=== PATIENT | female | born 1995 | race African-American/Black ===

== ENCOUNTER 2020-06-06 10:41 | Outpatient (REF) | payer OTHER, SELFPAY | END 2020-06-06 10:42 | disposition home or self-care (01) | LOC: HO.LAB 10:41 | PROVIDERS: Visit Provider Internal Medicine | DX: Z20.828 Contact with and (suspected) exposure to other viral communicable diseases (principal) | CPT/HCPCS: C9803; U0003 ==

== ENCOUNTER 2020-06-30 14:49 | Outpatient (REF) | payer OTHER, SELFPAY | END 2020-06-30 14:50 | disposition home or self-care (01) | LOC: HO.LAB 14:49 | PROVIDERS: Visit Provider Internal Medicine | DX: Z20.828 Contact with and (suspected) exposure to other viral communicable diseases (principal) | CPT/HCPCS: C9803; U0003 ==

== ENCOUNTER 2020-08-11 13:44 | Outpatient (REF) | payer OTHER, SELFPAY ==
--- NOTE | 2020-08-11 16:00 | MHC.AU.P13 ---
Hearing Aid Evaluation- Binaural Date of Visit: 08/11/20 Description of Hearing: Right ear- Moderate sloping to profound mixed hearing loss from 250-8000 Hz. Left ear- Mild to moderate sensorineural hearing loss from 250-4000 Hz, rising to normal hearing from 9008-9922 Hz. Current Hearing Instrument Information: Last hearing aids from 2012, has since lost. Additional Information: Ms. Steele reports that she has had hearing loss since childhood and has a history of ear surgeries. She was seen for an audiogram at [facility] on 08/02/2020 and medical clearance for binaural hearing aids was received from Dr. Zaragoza. She notes that she has been having increased difficulty hearing lately, especially at work. She is frequently asking for repetition or asking people to raise their voice so she can hear. Binaural amplification is recommended to facilitate improved communication. Options and technologies were discussed. Hearing Instrument Selection: Right Ear: College [employer] Department Head: [employer] Model: [employer] P70-13T Battery Size: 13 Color: P8-Black Refining Equipment Operator: Size 0 P Type of Mold: c-Shell Left Ear: [employer] Department Head: Phonak Model: [employer] P70-13T Battery Size: 13 Color: P8-Black Refining Equipment Operator: Size 0 M Type of Mold: c-Shell Plan: Plan of Care for Hearing Instrument Fitting: Patient wishes to purchase hearing aids as prescribed Action Taken/Action Needed: Earmold Impressions Taken Hearing Fitting to be scheduled when materials arrive Comments: Hearing aid order placed. Diagnosis Code(s): Primary Diagnosis: H90.3 Bilateral Sensorineural Hearing Loss Signature: Provider: Philip Teague, [facility]
== END 2020-08-11 13:45 | disposition home or self-care (01) ==
LOC: HO.HAP 13:44
PROVIDERS: Visit Provider Otolaryngology
DX: Z46.1 Encounter for fitting and adjustment of hearing aid (principal); H90.3 Sensorineural hearing loss, bilateral
CPT/HCPCS: 92591; V5275

== ENCOUNTER 2020-09-16 15:00 | Outpatient (REF) | payer OTHER, SELFPAY | END 2020-09-16 15:01 | disposition home or self-care (01) | LOC: HO.HAP 15:00 | PROVIDERS: Visit Provider Otolaryngology | DX: Z46.1 Encounter for fitting and adjustment of hearing aid (principal) | CPT/HCPCS: V5011; V5020; V5160; V5261; V5264; V5266 ==

== ENCOUNTER 2020-11-30 13:38 | Outpatient (REF) | payer OTHER, SELFPAY ==
--- NOTE | 2020-11-30 14:34 | MHC.AU.P13 ---
Hearing Instrument Problem Date of Visit: 11/30/20 Right Ear: Oil Well Services Dispatcher: Phonak Model: Audeo P70-13T Serial Number: [id number] Repair Warranty: 11/20/2023 Loss and Damage Warranty: 11/20/2023 Service Plan: 09/16/21 Battery Size: 13 Color: P8-Black Physics Technical Officer: Size 0 P Type of Mold: c-Shell SN: [id number] Warranty: 12/20/2020 Type of Wax Guard: Cerustop Left Ear: Oil [employer] Dispatcher: Phonak Model: Audeo P70-13T Serial Number: [id number] Repair Warranty: 11/20/2023 Loss and Damage Warranty: 11/20/2023 Service Plan: 09/16/21 Battery Size: 13 Color: P8-Black Physics Technical Officer: Size 0 M Type of Mold: c-Shell SN: [id number] (12/20/20) Type of Wax Guard: Cerustop Follow-Up Summary: Right aid dropped off - patient reports it was stepped on - sent to [place] for repair/remake cshell. Recommendations: Recommendations: Patient will be contacted when materials have arrived. Signature: Provider: NATE Chavez-HIS
== END 2020-11-30 13:39 | disposition home or self-care (01) ==
LOC: HO.HAP 13:38
PROVIDERS: Visit Provider Internal Medicine
DX: Z13.89 Encounter for screening for other disorder (principal)

== ENCOUNTER 2020-12-14 13:32 | Outpatient (REF) | payer OTHER, SELFPAY | END 2020-12-14 13:33 | disposition home or self-care (01) | LOC: HO.HAP 13:32 | PROVIDERS: Visit Provider Internal Medicine | DX: H90.3 Sensorineural hearing loss, bilateral (principal); Z46.1 Encounter for fitting and adjustment of hearing aid | CPT/HCPCS: V5266 ==

== ENCOUNTER 2021-02-02 16:00 | Outpatient (REF) | payer OTHER, SELFPAY | END 2021-02-02 16:01 | disposition home or self-care (01) | LOC: HO.HAP 16:00 | PROVIDERS: Visit Provider Internal Medicine | DX: Z46.1 Encounter for fitting and adjustment of hearing aid (principal); H90.5 Unspecified sensorineural hearing loss | CPT/HCPCS: V5266 ==

== ENCOUNTER 2021-03-24 13:07 | Outpatient (REF) | payer OTHER, SELFPAY ==
[2021-03-25 11:01] LABS: BV Int Neg Control Negative (Negative); BV Int Pos Control Positive (Positive)
[2021-03-25 11:20] LABS: CT PCR NOT DETECTED (Not Detect.); NG PCR NOT DETECTED (Not Detect.)
== END 2021-03-24 13:08 | disposition home or self-care (01) ==
LOC: HO.LAB 13:07
PROVIDERS: PCP Internal Medicine; Visit Provider Advanced Practice Midwife
DX: N92.1 Excessive and frequent menstruation with irregular cycle (principal); R10.2 Pelvic and perineal pain; Z97.5 Presence of (intrauterine) contraceptive device
CPT/HCPCS: 81003; 81025; 87480; 87491; 87510; 87591; 87660; 99212

== ENCOUNTER 2021-05-03 16:11 | Outpatient (REF) | payer OTHER, SELFPAY | END 2021-05-03 16:12 | disposition home or self-care (01) | LOC: HO.HAP 16:11 | PROVIDERS: Visit Provider Internal Medicine | DX: Z13.89 Encounter for screening for other disorder (principal) ==

== ENCOUNTER 2021-05-05 13:23 | Outpatient (REF) | payer OTHER, SELFPAY | END 2021-05-05 13:24 | disposition home or self-care (01) | LOC: HO.HAP 13:23 | PROVIDERS: Visit Provider Internal Medicine | DX: Z13.89 Encounter for screening for other disorder (principal) ==

== ENCOUNTER 2021-06-07 11:33 | Outpatient (REF) | payer OTHER, SELFPAY ==
--- NOTE | 2021-06-07 16:46 | MHC.AU.HFU ---
Hearing Instrument Follow-Up- Binaural Date of Visit: 06/07/21 Right Ear: Master Control Technician: Phonak Model: Audeo P70-13T Serial Number: [id number] Repair Warranty: 11/20/2023 Loss and Damage Warranty: 11/20/2023 - USED 06/12/2021 Service Plan: 09/16/21 Battery Size: 13 Color: P8-Black Clerical Transcriber: Size 0 P Type of Mold: c-Shell, SN: [id number], Warranty: 12/20/2020 Type of Wax Guard: Cerustop Dispensed By: [facility] Date of Fittin09/16/20 Left Ear: Master Control Technician: Phonak Model: Audeo P70-13T Serial Number: [id number] Repair Warranty: 11/20/2023 Loss and Damage Warranty: 11/20/2023 Service Plan: 09/16/21 Battery Size: 13 Color: P8-Black Clerical Transcriber: Size 0 M Type of Mold: c-Shell, SN: [id number] (12/20/20) Type of Wax Guard: Cerustop Dispensed By: [facility] Date of Fittin09/16/20 Follow-Up Summary: Patient was seen to pick-up left aid from repair. She reported good sound quality. She also reported that she lost the right hearing aid. Filled out an L&D form and sent to [facility]. Recommendations: Recommendations: Patient will be contacted when materials have arrived. Will bill new cShell to [facility] at pick-up. Primary Diagnosis: H90.3 Bilateral Sensorineural Hearing Loss Signature: Provider: Philip Teague, [facility]
== END 2021-06-07 11:34 | disposition home or self-care (01) ==
LOC: HO.HAP 11:33
PROVIDERS: Visit Provider Internal Medicine
DX: Z13.89 Encounter for screening for other disorder (principal)

== ENCOUNTER 2021-06-09 09:32 | Outpatient (REF) | payer OTHER, SELFPAY ==
[2021-06-10 12:02] LABS: BV Int Neg Control Negative (Negative); BV Int Pos Control Positive (Positive)
== END 2021-06-09 09:33 | disposition home or self-care (01) ==
LOC: HO.LAB 09:32
PROVIDERS: PCP Internal Medicine; Visit Provider Advanced Practice Midwife
DX: Z01.411 Encounter for gynecological examination (general) (routine) with abnormal findings (principal); N89.8 Other specified noninflammatory disorders of vagina; L73.2 Hidradenitis suppurativa
CPT/HCPCS: 87480; 87510; 87660; 88142

== ENCOUNTER 2021-07-11 11:03 | Outpatient (REF) | payer OTHER, SELFPAY | END 2021-07-11 11:04 | disposition home or self-care (01) | LOC: HO.HAP 11:03 | PROVIDERS: Visit Provider Internal Medicine | DX: Z46.1 Encounter for fitting and adjustment of hearing aid (principal); H90.3 Sensorineural hearing loss, bilateral | CPT/HCPCS: V5264 ==

== ENCOUNTER → 2021-09-04 16:08 | Outpatient (BNVA) | payer OTHER, SELFPAY | PROVIDERS: PCP Internal Medicine; Visit Provider Advanced Practice Midwife ==

== ENCOUNTER 2022-03-16 07:56 | Outpatient (REF) | payer OTHER, SELFPAY ==
--- NOTE | 2022-03-16 13:32 | MHC.AU.HFU ---
Hearing Instrument Follow-Up- Binaural Date of Visit: 03/16/22 Right Ear:Feather Cutting Machine Feeder: Phonak Model: Audeo P70-13T Serial Number: [id number] Repair Warranty: 11/20/2023 Loss and Damage Warranty: 11/20/2023 - USED 06/12/2021 Service Plan: 09/16/21 Battery Size: 13 Color: P8-Black Caltrans Equipment Operator: Size 0 P Type of Dome: Type of Mold: c-Shell SN: [id number] 10/24/2021 Type of Wax Guard: Cerustop Dispensed By: [facility] Date of Fittin09/16/20 Left Ear: Feather Cutting Machine Feeder: Phonak Model: Audeo P70-13T Serial Number: [id number] Repair Warranty: 11/20/2023 Loss and Damage Warranty: 11/20/2023 Service Plan: 09/16/21 Battery Size: 13 Color: P8-Black Caltrans Equipment Operator: Size 0 M Type of Mold: c-Shell SN: [id number] (12/20/20) Type of Wax Guard: Cerustop Dispensed By: [facility] Date of Fittin09/16/20 Follow-Up Summary: Patient reports yesterday the right aid stopped working and the left aid is weak. Listening check confirms problem. Placed new receivers on both aids with immediate sound improvement . Placed domes on aids, did not change acoustics in [employer]. Ordering new c-shells for both ears using scans on file. Recommendations: Recommendations: Patient will be contacted when materials have arrived. Services Performed:VASQUEZ Non-Quantity Charges: HACHECKB (MH>1 yr or new to us) Face to face appointment Signature:Provider: Lorie East, [facility]
== END 2022-03-16 07:57 | disposition home or self-care (01) ==
LOC: HO.HAP 07:56
PROVIDERS: Visit Provider Internal Medicine
DX: Z46.1 Encounter for fitting and adjustment of hearing aid (principal); H90.3 Sensorineural hearing loss, bilateral
CPT/HCPCS: 92593

== ENCOUNTER 2022-04-25 13:21 | Outpatient (REF) | payer OTHER, SELFPAY ==
--- NOTE | 2022-04-26 15:20 | MHC.AU.HFU ---
Hearing Instrument Follow-Up- Binaural Date of Visit: 04/25/22 Right Ear: Customizer: Phonak Model: Audeo P70-13T Serial Number: [id number] Repair Warranty: 11/20/2023 Loss and Damage Warranty: 11/20/2023 - USED 06/12/2021 Service Plan: 09/16/21 Battery Size: 13 Color: P8-Black Courtesy Van Driver: Size 0 P Type of Mold: c-Shell SN: [id number] Warranty: Type of Wax Guard: Cerustop Dispensed By: [facility] Date of Fittin09/16/20 Left Ear: Customizer: Phonak Model: Audeo P70-13T Serial Number: [id number] Repair Warranty: 11/20/2023 Loss and Damage Warranty: 11/20/2023 Service Plan: 09/16/21 Battery Size: 13 Color: P8-Black Courtesy Van Driver: Size 0 M Type of Mold: c-Shell SN: [id number] Warranty: Type of Wax Guard: Cerustop Dispensed By: [facility] Date of Fittin09/16/20 Follow-Up Summary: Alyse returned to milk pickup driver her new c-shell ear molds. Ran feedback software development project manager. Molds fit comfortably with no feedback in office. Her hearing aids were thoroughly cleaned and a listening check demonstrated the hearing aids were in good working order. Recommendations: Hearing instrument maintenance in 6 months, or sooner if needed. Please contact our clinic with any questions or concerns. Advised of c-shell warranty and recommended calling as soon as possible if problems with the ear mold fit arise. Diagnosis Code(s): Primary Diagnosis: H90.3 Bilateral Sensorineural Hearing Loss Services Performed: Earmold (Quantity): 2 VASQUEZ Non-Quantity Charges: HACHECKB (MH>1 yr or new to us) Face to face appointment Signature: Provider: BERYL Curry
== END 2022-04-25 13:22 | disposition home or self-care (01) ==
LOC: HO.HAP 13:21
PROVIDERS: Visit Provider Internal Medicine
DX: Z46.1 Encounter for fitting and adjustment of hearing aid (principal); H90.3 Sensorineural hearing loss, bilateral
CPT/HCPCS: 92583; V5264

== ENCOUNTER 2022-11-28 08:28 | Outpatient (REF) | payer OTHER, SELFPAY ==
[2022-11-28 15:21] LABS: CT PCR NOT DETECTED (Not Detect.); NG PCR NOT DETECTED (Not Detect.)
== END 2022-11-28 08:29 | disposition home or self-care (01) ==
LOC: HO.LNP 08:28
PROVIDERS: PCP Internal Medicine; Visit Provider Advanced Practice Midwife
DX: Z20.2 Contact with and (suspected) exposure to infections with a predominantly sexual mode of transmission (principal)
CPT/HCPCS: 0353U

== ENCOUNTER → 2023-01-02 14:00 | Outpatient (BNVA) | payer OTHER, SELFPAY | PROVIDERS: PCP Internal Medicine; Visit Provider Advanced Practice Midwife | DX: T83.32XA Displacement of intrauterine contraceptive device, initial encounter (principal); Z53.8 Procedure and treatment not carried out for other reasons | CPT/HCPCS: 58301 ==

== ENCOUNTER 2023-01-02 14:57 | Outpatient (REF) | payer OTHER, SELFPAY ==
--- NOTE | ~2023-01-02 | US_ITS ---
EXAMINATION: US PELVIS CLINICAL INFORMATION: Displacement of IUD COMPARISON: Previous pelvic ultrasound March 2020 TECHNIQUE: Transabdominal ultrasound. Transvaginal exam not performed. FINDINGS: Exam is slightly limited due to patient body habitus. The uterus is anteverted and retroflexed and measures 10.8 x 4.1 x 4.6 cm in dimension. There is an IUD in the uterus. This appears in correct position. The endometrium does not appear thickened measuring 0.5 cm. The right ovary measures 3.1 x 2 x 2.1 cm. There is a 2.3 x 1.7 x 1.5 cm simple cyst. According to best practice criteria and patient age no imaging follow-up recommended. The left ovary is normal and measures 2.8 x 1.6 x 2.3 cm. There is no fluid in the pelvis. US/US pelvic complete IMPRESSION: Limited exam due to patient body habitus. IUD in the uterus appears in satisfactory position. This could be further evaluated with transvaginal pelvic ultrasound and pelvic x-ray if clinically indicated.
== END 2023-01-02 14:58 | disposition home or self-care (01) ==
LOC: HO.US 14:57
PROVIDERS: Visit Provider Advanced Practice Midwife
DX: T83.32XA Displacement of intrauterine contraceptive device, initial encounter (principal)
CPT/HCPCS: 76856

== ENCOUNTER → 2023-01-08 13:05 | Outpatient (BNVA) | payer OTHER, SELFPAY | PROVIDERS: PCP Internal Medicine; Visit Provider Advanced Practice Midwife ==

== ENCOUNTER 2023-05-27 13:15 | Outpatient (AMB) | payer OTHER, SELFPAY ==
--- OUTSIDE RECORDS SUMMARY | 2023-05-27 13:16 | XMS_ITS | Continuity of Care Document ---
Author Name Unknown Organization [facility] ter Address [address] [place] [address]- Care Team Providers Care Bar Captain Name Role Phone Monica Francis MD Primary Care Physician [phone] Encounter [facility] [place] Date(s): 09/19/19 - 09/19/[address] [address]- [facility] Discharge Disposition: A-D/C Walkout Attending Physician: Not on Staff, Attending MD Admitting Physician: Not on Staff, Admitting MD Referring Physician: Not on Staff, Referring MD Allergies, Adverse Reactions, Alerts Substance Reaction Severity Status penicillin rash trouble breathing Activ e phenobarbital RASH Active Results Orders for Microbiology Reports Name Date Group A Strep Screen and Culture 09/19/19 Microbiology Reports TEST:Group A Strep Screen and Culture STATUS:Unauthenticated BODY SITE: SOURCE:THROAT COLLECTED DATE/TIME:09/19/19 3:53 PM Group A Strep Screen and Culture SPECIMEN DESCRIPTION : THROAT SWAB SPECIAL REQUESTS : NONE DIRECT EXAM : RAPID GROUP A RESULT IS NEGATIVE, REFER TO CULTURE RESULT. REPORT STATUS : PRELIMINARY REPORT Vital Signs Most recent to oldest [Reference Range]: 1 2 Oxygen Saturation [94-100 %] 97 % (09/19/19 3:42 PM) 100 % (09/19/19 3:32 PM) Pulse Rate [55-90 bpm] 106 bpm *H* (09/19/19 3:42 PM) 107 bpm *H* (09/19/19 3:32 PM) Blood Pressure [90-138/55-84 mm Hg] 120/ 66mm Hg (09/19/19 3:42 PM) Respiratory Rate [16-30 br/min] 18 br/mi n (09/19/19 3:42 PM) Temperature [96.8-100.4 DegF] 98.7 DegF (09/19/19 3:42 PM) Mode of Delivery (Oxygen) Room air (09/19/19 3:42 PM) Room air (09/19/19 3:32 PM) Blood pressure sites Arm, left (09/19/19 3:42 PM) Temperature Route Oral (09/19/19 3:42 PM)
--- OUTSIDE RECORDS SUMMARY | 2023-05-27 13:16 | XMS_ITS | Continuity of Care Document ---
Author Name Unknown Organization [facility] Address [address] [place] [address], [address] [place] [address]- Care Team Providers Care Rail Signal Designer Name Role Phone Po Silvestre VALLADARES Primary Care Physician Encounter [facility] [place] Date(s): 08/31/20 - 09/30/20 [facility] [address] [place] [address] Drive, [address] [place], [place] [address] Attending Physician: Admtr, Ar8 Admitting Physician: Admtr, Ar8 Referring Physician: Admtr, Ar8 Allergies, Adverse Reactions, Alerts Substance Reaction Severity Status penicillin rash trouble breathing Activ e phenobarbital RASH Active Medications Zoloft 25 mg oral tablet 1 tablet = 25 mg, By Mouth, Daily, # 30 tablet, 0 Refills, Maintenance, 08/31/20 14:14:00 EST, Tablet, Partial fill upon patient request if the prescription is for a schedule II opioid drug. Start Date: 08/31/20 Status: Ordered ZyrTEC 10 mg oral tablet 1 tablet = 10 mg, By Mouth, Daily, # 30 tablet, 0 Refills, Maintenance, 08/31/20 14:15:00 EST, Tablet, Partial fill upon patient request if the prescription is for a schedule II opioid drug. Start Date: 08/31/20 Status: Ordered
--- OUTSIDE RECORDS SUMMARY | 2023-05-27 13:16 | XMS_ITS | Continuity of Care Document ---
Author Name Unknown Organization [facility] Address [address] [place] [address], [address] [place] [address]- Care Team Providers Care International Relations Teacher Name Role Phone Po Silvestre VALLADARES Primary Care Physician [place] [facility] [place]20 [facility] [address] [place] [address], [address] [place] [address]- Attending Physician: Nick García MD Referring Physician: Nik VALLADARES, Javad [place] Allergies, Adverse Reactions, Alerts Substance Reaction Severity [...] opioid drug. Start Date: 08/31/20 Status: Ordered Vital Signs Most recent to oldest [Reference Range]: 1 Height 155 cm (08/31/20 2:13 PM) Weight 105.3 kg (08/31/20 2:13 PM) Body Mass Index [18.5-24.99] 43.83 *>HHI* (08/31/20 2:13 PM)
[2023-05-27 15:19] VITALS: BP 120/74; PULSE 101; TEMP 36.9; O2SAT 96; BMI 44.0
--- NOTE | 2023-05-27 15:19 | AM.OFFWIN_ITS ---
Intake Vital Signs 05/27/23 15:19 Height 5 ft 1 in Weight 233 lb BMI 44.0 BP 120/74 Blood Pressure Location Lt brachial Position Sitting Pulse 101 H Pulse Source Pulse Oximeter Temp 98.4 F Temp Source Oral Pulse Oximetry (%) 96 Oxygen Delivery Method Room Air Intake Visit Reasons: Rt knee sprain Intake Note: Pt presents to the office today for c/o right knee sprain which started on 05/24/23. Pt states she went to an urgent care on 05/24/23 and the urgent care told her that she should get an MRI. Patient Tobacco Use Status: Never used Tobacco Allergies Penicillins [PENICILLINS] Allergy (Unknown, Verified 05/27/23 15:22) HIVES phenobarbital [PHENOBARBITAL] Allergy (Unknown, Verified 05/27/23 15:22) HIVES HPI Rt knee sprain HPI Details 28-year-old female presents to the office for a sick visit. Patient is complaining of pain in the right knee. Does not recall any fall or injury. She was seen in different walk-in 3 days ago. No x-rays were taken. [facility] Medical History Morbid obesity with BMI of 40.0-44.9, adult Hidradenitis suppurativa Surgical History History of ear surgery History of tonsillectomy and adenoidectomy Family History Father Pacemaker Stroke Asthma Hypertension Mother Hypertension Asthma Chronic mental illness Anxiety and depression Social History Alcohol intake: current Alcohol intake frequency: holidays/special occasions only Patient Tobacco Use Status: Never used Tobacco Current occupational status: employed Current occupation: Mental health counselor Sexual orientation: Straight/Heterosexual Gender identity: Female Physical Exam Vital Signs: Last Vital Signs Temp 98.4 F 05/27/23 15:19 Pulse 101 H 05/27/23 15:19 BP 120/74 05/27/23 15:19 Pulse Ox 96 05/27/23 15:19 Oxygen Delivery Method Room Air 05/27/23 15:19 BMI result Body Mass Index 44.0 Extrem Other: Right knee: No joint line tenderness. Pain on flexion of the knee. Full extension of the knee. Assessment & Plan Assessment & Plan (1) Sprain of right knee: Code(s): S83.91XA - Sprain of unspecified site of right knee, initial encounter Plan: X-ray images were revisualized by me. No fractures seen. knee splint provided. Meloxicam called in. Orders: Orders XR knee RT 3V Today S83.91XA - Sprain of unspecified site of right knee, initial encounter Coding Level of Care Code Est Pt Level 4 (37716) Diagnoses Sprain of right knee S83.91XA
== END 2023-05-27 16:02 | disposition home or self-care (01) ==
PROVIDERS: PCP Internal Medicine; Visit Provider Internal Medicine
DX: S83.91XA Sprain of unspecified site of right knee, initial encounter (principal)
CPT/HCPCS: 99214

== ENCOUNTER 2023-05-27 15:32 | Outpatient (REF) | payer OTHER, SELFPAY ==
--- NOTE | ~2023-05-27 | XR_ITS ---
EXAMINATION: XR KNEE, RIGHT CLINICAL INFORMATION: Knee pain COMPARISON: None available. TECHNIQUE: Four views of the right knee. FINDINGS: No significant joint effusion. Joint spaces are preserved. Tiny posterior patellar and lateral marginal osteophytes. XR/XR knee RT 3V IMPRESSION: Minimal degenerative changes.
== END 2023-05-27 15:33 | disposition home or self-care (01) ==
LOC: HO.HMGCX 15:32
PROVIDERS: PCP Internal Medicine; Visit Provider Internal Medicine
DX: S83.91XA Sprain of unspecified site of right knee, initial encounter (principal); X58.XXXA Exposure to other specified factors, initial encounter; Y93.9 Activity, unspecified; Y92.9 Unspecified place or not applicable; Y99.9 Unspecified external cause status
CPT/HCPCS: 73562

== ENCOUNTER 2023-06-26 09:38 | Outpatient (AMB) | payer OTHER, SELFPAY ==
--- NOTE | 2023-06-26 09:51 | A.OFFVIS_ITS ---
Intake Vital Signs 06/26/23 09:52 Height 5 ft 1 in Weight 236 lb BMI 44.6 BP 114/74 Intake Visit Reasons: Consult on IUD removal Boatswains Mate Required: No Information Interpreted: non-clinical & clinical Blind Lacer: Blind Lacer Present (Isatu) Allergies Penicillins [PENICILLINS] Allergy (Unknown, Verified 06/26/23 09:54) HIVES phenobarbital [PHENOBARBITAL] Allergy (Unknown, Verified 06/26/23 09:54) HIVES Is last menstrual period known: Yes Last menstrual period: 06/23/23 Post menopausal: No Patient : No Do you need a note to return to daycare/school/sports/work: Yes (for surgery on saturday) HPI HPI Comments History of Present Illness Details Presenting referred from Renetta Carrillo CNM regarding IUD removal after a failed attempt to remove. Ultrasound in 01/18 showed IUD in utero. The patient is interested in conception [facility] Medical History Morbid obesity with BMI of 40.0-44.9, adult Hidradenitis suppurativa Surgical History History of ear surgery History of tonsillectomy and adenoidectomy Family History Father Pacemaker Stroke Asthma Hypertension Mother Hypertension Asthma Chronic mental illness Anxiety and depression Social History Alcohol intake: current Alcohol intake frequency: holidays/special occasions only Patient Tobacco Use Status: Never used Tobacco Current occupational status: employed Current occupation: Mental health counselor Sexual orientation: Straight/Heterosexual Gender identity: Female Female Reproductive History Menstrual Age of Menarche: 9 Duration of menses: 3-5 days Date of last menstrual period: 06/23/23 control method: progestin IUCD Total pregnancies: 1 Full term: 1 Number of Living Children: 1 Date of last pap smear: 06/12/21 (negative) History of abnormal pap smear: No Review of Systems Card Reports as per HPI and Reports no additional complaints Resp Reports as per HPI and Reports no additional complaints GI Reports as per HPI and Reports no additional complaints Reports as per HPI Physical Exam Vital Signs: Last Vital Signs BP 114/74 06/26/23 09:52 BMI result Body Mass Index 44.6 Const General: cooperative, healthy appearing and comfortable Chest Chest palpation & inspection: normal inspection of the chest and normal palpation of entire chest wall Breast/axilla inspection: normal inspection of the breasts and normal inspection of the axillae Breast/axilla palpation: normal palpation of the breasts, normal palpation of the axillae and no axillary lymphadenopathy Resp Effort & Inspection: normal respiratory effort Auscultation: clear to auscultation bilaterally Percussion: percussion normal Cardio Palpation: normal PMI Rate: regular rate Rhythm: regular rhythm Heart sounds: no murmurs and no rubs Peripheral pulses: Peripheral pulses 2+ throughout GI Inspection: Yes normal to inspection Palpation (GI): Soft to palpation, nontender, no guarding, not rigid and No hepatosplenomegaly present Percussion: Yes normal to percussion Auscultation: normal bowel sounds Rectal Exam - Female: deferred Results AMB Test Urine AMB Test Urine Negative Last Edit by OFELIA Jenkins on 06/26/23 10:18 Assessment & Plan Assessment & Plan (1) IUD strings lost: Code(s): T83.32XA - Displacement of intrauterine contraceptive device, initial encounter Plan: Attempted IUD removal was unsuccessful. Recommended hysteroscopic IUD removal. Discussed with the patient the procedure , all benefits and risks including but not limited to inability to complete the procedure , bleeding, infection, possible need for blood transfusion with all its risk ( HIV,syphilis, Hepatitis, anaphylaxis shock, others..), injury to bladder, rectum, possible need for laparoscopy/laparotomy or hysterectomy. The patient verbalized understanding and signed the consent. Instructions given the patient to schedule a 2 week postoperative appointment Orders: Orders AMB HCG Urine Test Today Z32.02 - Encounter for test, result negative Coding Level of Care Code Est Pt Level 3 (13084) Diagnoses IUD strings lost T83.32XA
[2023-06-26 09:52] VITALS: BP 114/74; BMI 44.6
== END 2023-06-26 11:33 | disposition home or self-care (01) ==
PROVIDERS: PCP Internal Medicine; Visit Provider Obstetrics & Gynecology
DX: Z32.02 Encounter for pregnancy test, result negative (principal); T83.32XA Displacement of intrauterine contraceptive device, initial encounter
CPT/HCPCS: 99213

== ENCOUNTER → 2023-06-26 09:38 | Outpatient (BNVA) | payer OTHER, SELFPAY | PROVIDERS: PCP Internal Medicine; Visit Provider Obstetrics & Gynecology | DX: T83.32XA Displacement of intrauterine contraceptive device, initial encounter (principal) | CPT/HCPCS: 81025; 99212 ==

== ENCOUNTER 2023-07-05 05:53 | Day surgery (SDC) | payer OTHER, SELFPAY ==
[2023-07-02 15:40] VITALS: BMI 44.6
--- NOTE | 2023-07-03 14:12 | P.CONAN_ITS ---
Documented by User: Rita Fam NP 07/03/23 14:12 HPI - Anesthesia Eval Consult details Narrative: 28yo F for Hysteroscopy,REMOVAL intrauterine contraceptive device, PMFSH Active Problems Active Problems: All Active Problems (Updated 07/02/23 @ 15:40 by Flori Juarez RN) IUD strings lost (Acute) Sprain of right knee (Acute) Hearing deficit (Acute) Atlantoaxial subluxation (Acute) Otitis externa (Acute) Otitis media (Acute) Allergy (Acute) Hidradenitis suppurativa (Acute) Past Medical History Medical History (Updated 07/02/23 @ 15:40 by Flori Juarez RN) Hearing deficit Morbid obesity with BMI of 40.0-44.9, adult Hidradenitis suppurativa Family History Family History Father Pacemaker Stroke Asthma Hypertension Mother Hypertension Asthma Chronic mental illness Anxiety and depression Surgical History Surgical History History of ear surgery History of tonsillectomy and adenoidectomy Social History Social History Alcohol intake: current Alcohol intake frequency: holidays/special occasions only Patient Tobacco Use Status: Never used Tobacco Current occupational status: employed Current occupation: Mental health counselor Sexual orientation: Straight/Heterosexual Gender identity: Female Meds Allergies Allergy/AdvReac Type Severity Reaction Status Date / Time Penicillins [PENICILLINS] Allergy Intermediate HIVES Verified 07/05/23 06:23 phenobarbital [PHENOBARBITAL] Allergy Intermediate HIVES Verified 07/05/23 06:23 Home Medications Medication Instructions Recorded Confirmed Last Taken Type levonorgestrel 21 mcg/24 hours (8 0 device vaginal ONCE 06/07/20 Unknown History yrs) 52 mg intrauterine device diphenhydramine HCl 25 mg capsule 25 mg PO BEDTIME 09/04/21 Unknown History (Benadryl) fexofenadine 180 mg tablet 180 mg PO DAILY 05/27/23 Unknown History (Yelitza Hives) Exam Height,Weight and Vital Signs: Height 5 ft 1 in Weight 107.048 kg Assessment and Plan Assessment Anesthesia Assessment: Chart Reviewed Documented by User: Zaid Rodriguez MD 07/05/23 07:29 [facility] Past Medical History Medical History (Updated 07/02/23 @ 15:40 by Flori Juarez RN) Hearing deficit Morbid obesity with BMI of 40.0-44.9, adult Hidradenitis suppurativa Patient : No Family History Family History Father Pacemaker Stroke Asthma Hypertension Mother Hypertension Asthma Chronic mental illness Anxiety and depression Family history of problems with anesthesia: No Surgical History Surgical History History of ear surgery History of tonsillectomy and adenoidectomy History of Problems with Anesthesia: No Social History Social History Alcohol intake: current Alcohol intake frequency: holidays/special occasions only Patient Tobacco Use Status: Never used Tobacco Current occupational status: employed Current occupation: Mental health counselor Sexual orientation: Straight/Heterosexual Gender identity: Female Meds Allergies Allergy/AdvReac Type Severity Reaction Status Date / Time Penicillins [PENICILLINS] Allergy Intermediate HIVES Verified 07/05/23 06:23 phenobarbital [PHENOBARBITAL] Allergy Intermediate HIVES Verified 07/05/23 06:23 Home Medications Medication Instructions Recorded Confirmed Last Taken Type levonorgestrel 21 mcg/24 hours (8 0 device vaginal ONCE 06/07/20 Unknown History yrs) 52 mg intrauterine device diphenhydramine HCl 25 mg capsule 25 mg PO BEDTIME 09/04/21 Unknown History (Benadryl) fexofenadine 180 mg tablet 180 mg PO DAILY 05/27/23 Unknown History (Yelitza Hives) Exam Airway Mallampati Class: II TM Dist: <=3cm Neck ROM: Full Loose/Missing/Broken Teeth: No Heart: ok Lungs: ok Assessment and Plan Assessment Anesthesia Assessment: Anesthesia Plan Discussed Final Anesthetic Review Family History of Problems with Anesthesia: No History of Problems with Anesthesia: No NPO: Yes ASA Class: III Final Preanesthetic Review: No Changes in Pt Med Stat, Meds/Allgs Chart Reviewed, Consent Obtained/Reviewed and Anes Risks/Benef Reviewed Patient Risk: Intermediate Procedure Risk: Low Anesthetic Plan Anesthetic Plan: GA and Agree w/ Assess. and Plan Disposition: Standard PACU
[2023-07-05 06:12] VITALS: BMI 45.4
[2023-07-05 06:33] VITALS: BP 115/74; PULSE 79; RESP 16; TEMP 36.8; O2SAT 96
[2023-07-05 06:56] LABS: UPreg QC Valid YES
[2023-07-05 06:57] LABS: Urine Pregnancy NEGATIVE (NEGATIVE)
[2023-07-05] MEDS: Lactated Ringers 1,000 ML 100 ML IVCONT (07:06)
--- NOTE | 2023-07-05 07:37 | MHC.SHP ---
Pre-Procedural Eval Section A Date of Service: 07/05/23 The patient is an INPATIENT: No Changes since office visit: No Cold of Flu in the past 2 weeks, No New Medical Problems, No Changes in Medication and No Patient answered all questions The History & Physical has been completed within 30 days and I have reviewed it.: Yes Section B Chief Complaint: Displacement of intrauterine contraceptive device, Allergies: Allergies Allergy/AdvReac Type Severity Reaction Status Date / Time Penicillins [PENICILLINS] Allergy Intermediate HIVES Verified 07/05/23 06:23 phenobarbital [PHENOBARBITAL] Allergy Intermediate HIVES Verified 07/05/23 06:23 Plan Diagnosis/Plan: Unchanged I have reviewed the history and physical and performed a pertinent physical examination on my patient. No changes have occurred unless specified. Time Spent With Patient Time: Total time managing care of this patient today ____ minutes.
--- NOTE | 2023-07-05 08:00 | PM.OP ---
Brief Operative Note Date of Service: 07/05/23 Pre-op diagnosis: IUD complication, lost string Post-op diagnosis: same Procedure: Hysteroscopic IUD removal Surgeon: Vinay Lamar MD Anesthesia: MAC Was an Mortgage Processor used for this Procedure?: No Estimated blood loss (mL): 0 Pathology: other (none) Condition: stable Disposition: PACU
--- NOTE | 2023-07-05 08:01 | W.PM.OPN ---
Operative Note Operative Note Date of Service: 07/05/23 Narrative: Preop Diagnosis: IUD complication, lost string Operation: Diagnostic Hysteroscopic IUD removal Post Op Diagnosis: same. IUD and string in utero QBL: Minimal Anesthesia: MAC Surgeon: Vinay Lamar MD Vinyl Welder And Fabricator: None Complication: None Pathology: None Procedure: The patient was put in the dorsal lithotomy position, scrubbed, and draped in the usual manner. A sterile speculum was inserted in the patient's vagina. The anterior lip of the cervix was grasped with a single tooth tenaculum. The cervix was dilated up to 5 mm, then the scope was inserted in the patient's uterus. Inspection revealed IUD & its string in utero. A hysteroscopic grasper was introduced through the operative channel, the string grasped and IUD pulled out of the uterine cavity with no complications. At the end of the procedure, all instruments were taken out of the patient uterine and vaginal cavity. The single tooth tenaculum was removed and homeostasis was assured using pressure. The patient tolerated the procedure well and was transferred to the PACU in a stable condition.
[2023-07-05 08:10] VITALS: BP 93/52; PULSE 84; RESP 14; TEMP 36.1; O2SAT 94
[2023-07-05 08:15] VITALS: BP 94/58; PULSE 77; RESP 14; O2SAT 95
[2023-07-05 08:20] VITALS: BP 95/58; PULSE 78; RESP 16; O2SAT 96
[2023-07-05 08:25] VITALS: BP 107/61; PULSE 80; RESP 16; O2SAT 96
[2023-07-05 08:40] VITALS: BP 102/61; PULSE 76; RESP 16; TEMP 36.1; O2SAT 98
== END 2023-07-05 09:00 | disposition home or self-care (01) ==
PROVIDERS: PCP Internal Medicine; Visit Provider Obstetrics & Gynecology
PROC: 0UJD8ZZ Inspection of Uterus and Cervix, Via Natural or Artificial Opening Endoscopic (ICD-10-PCS; CPT 58555; principal; 2023-07-05 07:30)
DX: T83.32XA Displacement of intrauterine contraceptive device, initial encounter (principal); Y76.8 Miscellaneous obstetric and gynecological devices associated with adverse incidents, not elsewhere classified; Y92.9 Unspecified place or not applicable; L73.2 Hidradenitis suppurativa; E66.01 Morbid (severe) obesity due to excess calories; Z68.41 Body mass index [BMI] 40.0-44.9, adult; Z88.0 Allergy status to penicillin; Z88.8 Allergy status to other drugs, medicaments and biological substances; Z98.890 Other specified postprocedural states
CPT/HCPCS: 58562; 81025; 88300; 88304; J1885; J2250; J2405; J2704; J3010

== ENCOUNTER → 2023-07-05 05:53 | Outpatient (BNV) | payer OTHER, SELFPAY | PROVIDERS: PCP Internal Medicine; Visit Provider Obstetrics & Gynecology | DX: M47.816 Spondylosis without myelopathy or radiculopathy, lumbar region (principal) | CPT/HCPCS: 58562; 64555 ==

== ENCOUNTER 2023-07-17 13:10 | Outpatient (AMB) | payer OTHER, SELFPAY ==
[2023-07-17 13:15] VITALS: BP 116/70; BMI 44.6
--- NOTE | 2023-07-17 13:15 | A.OFFVIS_ITS ---
Intake Vital Signs 07/17/23 13:15 Height 5 ft 1 in Weight 236 lb BMI 44.6 BP 116/70 Intake Visit Reasons: post op Customer Service Advocate Required: No Information Interpreted: non-clinical & clinical Accompanied by: Self / Same As Patient Allergies Penicillins [PENICILLINS] Allergy (Intermediate, Verified 07/17/23 13:22) HIVES phenobarbital [PHENOBARBITAL] Allergy (Intermediate, Verified 07/17/23 13:22) HIVES Is last menstrual period known: Yes Last menstrual period: 07/14/23 HPI HPI Comments History of Present Illness Details The patient is presenting post hysteroscopic IUD removal no complaints minimal vaginal bleeding no feverishness chills or abdominal pain. The pathology showed the following: ntrauterine device and adherent soft tissue: - T shaped device consistent with IUD. - Small fragments of endometrial stromal with pseudodecidual change; fibrinonecrotic matererial [facility] Medical History Hearing deficit Morbid obesity with BMI of 40.0-44.9, adult Hidradenitis suppurativa Surgical History History of ear surgery History of tonsillectomy and adenoidectomy Family History Father Pacemaker Stroke Asthma Hypertension Mother Hypertension Asthma Chronic mental illness Anxiety and depression Social History Alcohol intake: current Alcohol intake frequency: holidays/special occasions only Patient Tobacco Use Status: Never used Tobacco Current occupational status: employed Current occupation: Mental health counselor Sexual orientation: Straight/Heterosexual Gender identity: Female Female Reproductive History Menstrual Age of Menarche: 9 Date of last menstrual period: 07/14/23 Review of Systems Const All systems reviewed & are unremarkable except as noted in HPI and below Reports as per HPI and Reports no additional complaints GI Reports no additional complaints Reports no additional complaints Physical Exam Vital Signs: Last Vital Signs BP 116/70 07/17/23 13:15 BMI result Body Mass Index 44.6 Assessment & Plan Assessment & Plan (1) IUD strings lost: Comment: Status post hysteroscopic IUD removal Code(s): T83.32XA - Displacement of intrauterine contraceptive device, initial encounter Plan: Discussed with the patient the intraoperative findings, the patient was reassured. All questions answered, the patient verbalized understanding Coding Level of Care Code Est Pt Level 3 (13279) Diagnoses IUD strings lost T83.32XA
== END 2023-07-17 13:38 | disposition home or self-care (01) ==
LOC: HO.HWS 13:11
PROVIDERS: PCP Internal Medicine; Visit Provider Obstetrics & Gynecology
DX: T83.32XA Displacement of intrauterine contraceptive device, initial encounter (principal); Z09 Encounter for follow-up examination after completed treatment for conditions other than malignant neoplasm
CPT/HCPCS: 99213

== ENCOUNTER → 2023-07-17 13:10 | Outpatient (BNVA) | payer OTHER, SELFPAY | PROVIDERS: PCP Internal Medicine; Visit Provider Obstetrics & Gynecology | DX: T83.32XD Displacement of intrauterine contraceptive device, subsequent encounter (principal) | CPT/HCPCS: 99212 ==

== ENCOUNTER 2023-09-17 11:14 | Outpatient (AMB) | payer SELFPAY ==
[2023-09-17 11:25] VITALS: BP 126/72; PULSE 88; O2SAT 99; BMI 45.2
--- NOTE | 2023-09-17 11:25 | A.OFFPC_ITS ---
Vital Signs 09/17/23 11:25 Height 5 ft 1 in Weight 239 lb BMI 45.2 BP 126/72 Blood Pressure Location Lt brachial Position Sitting Pulse 88 Pulse Source Pulse Oximeter Pulse Oximetry (%) 99 Oxygen Delivery Method Room Air Intake Visit Reasons: Physical Intake Note: Patient is here today for a physical. Store Promoter Required: No Allergies Penicillins [PENICILLINS] Allergy (Intermediate, Verified 07/17/23 13:22) HIVES phenobarbital [PHENOBARBITAL] Allergy (Intermediate, Verified 07/17/23 13:22) HIVES Medication List - Last Reconciled 09/17/23 by Silvestre Batista MD diphenhydramine HCl (Benadryl) 25 mg PO BEDTIME fexofenadine (Yelitza Hives) 180 mg PO DAILY PNV,calcium [id number] acid 27 mg iron- 1 mg ( Vitamins Plus Low Iron) 1 tab PO DAILY Tobacco use date assessed: 09/17/23 Dental Screening Dental Screen Date: 09/17/23 Did you have a dental visit in the last 12 months?: No Did you have a dental problem in the last 6 months where you did not have access to dental care?: No HPI Physical HPI Details 28-year-old morbidly obese female coming in for physical exam LMP August 07, 2023, PMPDecember first week - presently 6 weeks [facility] Medical History (Updated 09/17/23 @ 12:31 by Silvestre Batista MD) Obesity Hearing deficit Morbid obesity with BMI of 40.0-44.9, adult Hidradenitis suppurativa Surgical History History of ear surgery History of tonsillectomy and adenoidectomy Family History Father Pacemaker Stroke Asthma Hypertension Mother Hypertension Asthma Chronic mental illness Anxiety and depression Social History Alcohol intake: current Alcohol intake frequency: holidays/special occasions only Patient Tobacco Use Status: Never used Tobacco Current occupational status: employed Current occupation: Mental health counselor Sexual orientation: Straight/Heterosexual Gender identity: Female Cognitive needs: No Hearing needs: No Vision needs: No Female Reproductive History Menstrual Age of Menarche: 9 Questionnaire PHQ-9 Over the last 2 weeks, how often have you been bothered by any of the following problems? 1. Little interest or pleasure in doing things: several days 2. Feeling down, depressed, or hopeless: several days 3. Trouble falling or staying asleep, or sleeping too much: several days 4. Feeling tired or having little energy: several days 5. Poor appetite or overeating: several days 6. Feeling bad about yourself - or that you are a failure or have let yourself or your family down: several days 7. Trouble concentrating on things, such as reading the newspaper or watching television: not at all 8. Moving or speaking so slowly that other people could have noticed. Or the opposite - being so fidgety or restless that you have been moving around a lot more than usual: several days 9. Thoughts that you would be better off or of hurting yourself in some way: not at all Total score: 7 Depression Screening Interpretation: Positive Depression Screening Done: Yes Source: Developed by Drs. Nick Gautam, Tiny Espana, Ayaan Aaron and colleagues, with an educational juan from [employer]. Thrive Questionnaire Date Thrive assessed: 09/17/23 I am a: Patient What is your living situation today?: I have a steady place to live Within the past 12 months, did the food you bought not last and you didn't have the money to get more?: Never true Within the past 12 months, did you worry whether your food would run out before you got money to buy more?: Never true Do you have trouble paying for medicines?: No Do you have trouble getting transportation to medical appointments?: No Do you have trouble paying your heating and electricity bill?: No Do you have trouble taking care of your child, family member or friend?: No Do you have trouble with day-to-day activities such as bathing, preparing meals, shopping, managing finances, etc.?: No Are you currently unemployed and looking for a job?: No Are you interested in more education?: No Please select the resources that you would like help with: None THRIVE Score: 0 AUDIT C Alcohol Use Questionnaire (AUDIT-C) 1. How often do you have a drink containing alcohol?: Never 2. How many drinks containing alcohol do you have on a typical day when you are drinking?: 1 or 2 3. How often do you have six or more drinks on one occasion?: Never Total Score: 0 ARABELLA-7 AMB Questionnaire ARABELLA-7 Date ARABELLA - 7 assessed: 09/17/23 Feeling nervous, anxious, or on edge: 1 = Several days Not being able to stop or control worryin = Several days Worrying too much about different things: 1 = Several days Trouble relaxin = Several days Being so restless that it is hard to sit still: 1 = Several days Becoming easily annoyed or irritable: 1 = Several days Feeling afraid as if something awful might happen: 0 = Not at all Total ARABELLA-7 score (0-4 normal; 5-9 mild; 10-14 moderate; 15-21 severe): 6 Source: Developed by Drs. Nick Gautam, Tiny Espana, Ayaan Aaron and colleagues, with an educational juan from [employer]. Review of Systems Const Denies poor appetite and Denies weakness Eyes Denies no additional complaints ENT Reports Normal hearing present, Denies dizziness, Denies nasal congestion, Denies tinnitus and Denies sore throat Card Denies chest pain, Denies syncope, Denies rapid heart rate and Denies dyspnea Resp Denies cough and Denies dyspnea GI Denies change in stool character, Reports constipation, Denies diarrhea, Denies nausea and Denies vomiting Denies urinary frequency, Denies difficulty voiding and Denies dysuria Neuro Reports Normal hearing present, Denies confusion, Denies dizziness, Denies syncope and Denies weakness Psych Denies confusion Physical exam (Primary Care) Vital Signs: Last Vital Signs Pulse 88 09/17/23 11:25 BP 126/72 09/17/23 11:25 Pulse Ox 99 09/17/23 11:25 Oxygen Delivery Method Room Air 09/17/23 11:25 BMI result Body Mass Index 45.2 Tobacco/Smoking Status: Tobacco use Status Tobacco use date assessed 09/17/23 09/17/23 11:26 Patient Tobacco Use Status Never used Tobacco 09/17/23 11:26 PHQ-9: PHQ-9 Score PHQ-9: Total score 7 09/17/23 11:44 Depression Screening Interpretation: Positive Thrive Assessment: Date of Thrive Assessment Date Thrive assessed 09/17/23 09/17/23 11:26 Const General: No confusion Orientation/consciousness: No confusion HENMT Other: Left ear TM intact, right ear can not see the TM, yellowish discharge noted(pus) Head: Yes normocephalic Ears: external ears normal Face and sinus: Yes normal facial exam Mouth: moist mucous membranes Throat: Yes tonsils normal Eyes Conjunctivae: conjunctivae normal Pupils: Equal, round and reactive pupils present and Pupil accommodation reflex normal Direct Ophthalmoscopy: normal light reflex Neck Neck: No lymphadenopathy Thyroid: Thyroid normal Chest Chest palpation & inspection: normal inspection of the chest Resp Effort & Inspection: normal respiratory effort and no audible wheezes Auscultation: clear to auscultation bilaterally, no crackles, no wheezes and jackie ng sounds not diminished Cardio Rate: regular rate Rhythm: regular rhythm Peripheral pulses: radial pulses present and dorsalis pedis present GI Other: Abdomen is enlarged to 6 weeks Palpation (GI): no masses Auscultation: normal bowel sounds and normoactive bowel sounds Rectal Exam - Female: deferred Skin General skin exam: no rashes or lesions noted Rashes: no rashes Neuro General: No confusion Cranial nerves: Yes Equal, round and reactive pupils present and Yes Normal hearing present Cognition (Neuro): normal cognition Gait exam (Neuro): Normal gait present Motor exam (neuro): 5/5 motor strength present throughout Deep tendon reflexes (DTR's): Right brachioradialis reflex intensity grade: 2+, Left brachioradialis reflex intensity grade: 2+, Right patellar reflex intensity grade: 2+ and Left patellar reflex intensity grade: 2+ Extrem General: No edema Assessment and Plan Assessment & Plan (1) Annual physical exam: Code(s): Z00.00 - Encounter for general adult medical examination without abnormal findings (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 García Code(s): S13.120A - Subluxation of C1/C2 cervical vertebrae, initial encounter Plan: Will and continuing to monitor. Presently stable (3) with 6 completed weeks gestation: Code(s): Z3A.01 - Less than 8 weeks gestation of Plan: Patient will be seeing OB Gynecology in September. (4) Hearing deficit: Code(s): H91.90 - Unspecified hearing loss, unspecified ear Plan: Continuing to use hearing aids. Can not refer to hearing test due to the right ear infection right now (5) GERD (gastroesophageal reflux disease): Code(s): K21.9 - Gastro-esophageal reflux disease without esophagitis Plan: Avoid the foods that causes that usually spicy foods, tomato products, juices, coffee, soda and foods that your sensitive to. After eating do not lie down, allow 3-4 hours before in lie down. And keep the head of bed above 30 degrees to avoid the acid from going up. (6) Otitis media of right ear: Code(s): H66.91 - Otitis media, unspecified, right ear Plan: Penicillin allergy, azithromycin sent in (7) Reactive airway disease: Code(s): J45.909 - Unspecified asthma, uncomplicated Plan: Albuterol inhaler sent in and taught the patient to use it. Medications: New azithromycin (Zithromax) For 250 mg dose pack: take 500 mg today (day 1), then 250 mg for 4 days (days 2-5) PO 6 tabs 0RF H66.91 - Otitis media, unspecified, right ear albuterol sulfate 90 mcg/actuation (Ventolin HFA) 2 puffs inhalation Q6H PRN 8.5 grams 0RF shortness of breath or wheezing T78.40XA - Allergy, unspecified, initial encounter Coding Level of Care Code Est Pt Prev Care 18-39y(52410) Diagnoses Annual physical exam Z00.00 Atlantoaxial subluxation S13.120A with 6 completed weeks gestation Z3A.01 Hearing deficit H91.90 GERD (gastroesophageal reflux disease) K21.9 Otitis media of right ear H66.91 Reactive airway disease J45.909
== END 2023-09-17 12:32 | disposition home or self-care (01) ==
PROVIDERS: PCP Internal Medicine; Visit Provider Internal Medicine
DX: Z00.00 Encounter for general adult medical examination without abnormal findings (principal); S13.120A Subluxation of C1/C2 cervical vertebrae, initial encounter; Z3A.01 Less than 8 weeks gestation of pregnancy; H91.90 Unspecified hearing loss, unspecified ear; K21.9 Gastro-esophageal reflux disease without esophagitis; H66.91 Otitis media, unspecified, right ear; J45.909 Unspecified asthma, uncomplicated
CPT/HCPCS: 99395

== ENCOUNTER 2024-02-19 12:59 | Outpatient (AMB) | payer OTHER, SELFPAY ==
[2024-02-19 13:19] VITALS: BP 122/76; PULSE 118; TEMP 36.2; O2SAT 98; BMI 47.0
--- NOTE | 2024-02-19 13:19 | MHC.OFFWIV ---
Intake Vital Signs 02/19/24 13:19 Height 5 ft 1 in Weight 249 lb BMI 47.0 BP 122/76 Blood Pressure Location Lt brachial Position Sitting Pulse 118 H Pulse Source Pulse Oximeter Temp 97.2 F Temp Source Temporal Artery Scan Pulse Oximetry (%) 98 Oxygen Delivery Method Room Air Intake Visit Reasons: EP lft eye stye Intake Note: Alyse is a 28 year old female who presents to the office today for a left eye stye that started Saturday night. Pt states she has been using hot compresses to help with swelling but she states this morning it was more swollen. Pt also states she is 28 weeks . Patient Tobacco Use Status: Never used Tobacco Allergies Penicillins [PENICILLINS] Allergy (Intermediate, Verified 02/19/24 13:21) HIVES phenobarbital [PHENOBARBITAL] Allergy (Intermediate, Verified 02/19/24 13:21) HIVES HPI HPI Comments History of Present Illness Details Patient is a 28-year-old female who is 28 weeks complaining of right eye stye x 3 days. She said she has been using hot compresses constantly but it is actually getting worse. She states it is now painful. She denies any changes in her vision. [facility] Medical History (Updated 02/19/24 @ 13:39 by Anne Castillo PA-C) Obesity Hearing deficit Morbid obesity with BMI of 40.0-44.9, adult Hidradenitis suppurativa Surgical History History of ear surgery History of tonsillectomy and adenoidectomy Family History Father Pacemaker Stroke Asthma Hypertension Mother Hypertension Asthma Chronic mental illness Anxiety and depression Social History Alcohol intake: current Alcohol intake frequency: holidays/special occasions only Patient Tobacco Use Status: Never used Tobacco Current occupational status: employed Current occupation: Mental health counselor Sexual orientation: Straight/Heterosexual Gender identity: Female Cognitive needs: No Hearing needs: No Vision needs: No Female Reproductive History Menstrual Age of Menarche: 9 Review of Systems Const All systems reviewed & are unremarkable except as noted in HPI and below Physical Exam Vital Signs: Last Vital Signs Temp 97.2 F 02/19/24 13:19 Pulse 118 H 02/19/24 13:19 BP 122/76 02/19/24 13:19 Pulse Ox 98 02/19/24 13:19 Oxygen Delivery Method Room Air 02/19/24 13:19 BMI result Body Mass Index 47.0 Const General: cooperative, healthy appearing, comfortable and no acute distress Orientation/consciousness: patient oriented x3 HEENT Head: Yes normal to inspection General nose exam: Normal external nose present Face and sinus: Yes normal facial exam Eyes Eyelids: Yes eyelid abnormality (Left eye, upper eyelid, 0.25 cm erythematous lump in the medial corner) Conjunctivae: conjunctivae normal Sclerae: sclerae normal Pupils: Equal, round and reactive pupils present EOM: EOMs intact bilaterally Resp Effort & Inspection: normal respiratory effort and able to speak in complete sentences Neuro General: patient oriented x3 Cranial nerves: Yes Equal, round and reactive pupils present Assessment & Plan Assessment & Plan (1) Hordeolum externum left upper eyelid: Code(s): H00.014 - Hordeolum externum left upper eyelid Plan: Sent prescription to pharmacy for eye ointment, educated patient on the use of ointment. Advised if she has any changes in her vision, she should call her PCP or go to the emergency department. Plan See above Medications: New erythromycin 0.5 inches ophthalmic (eye) QID 3.5 grams 0RF Coding Level of Care Code Est Pt Level 3 (44660) Diagnoses Hordeolum externum left upper eyelid H00.014
== END 2024-02-19 13:48 | disposition home or self-care (01) ==
PROVIDERS: PCP Internal Medicine; Visit Provider Physician Assistant
DX: H00.014 Hordeolum externum left upper eyelid (principal)
CPT/HCPCS: 99213

== ENCOUNTER 2024-02-28 12:28 | Outpatient (AMB) | payer OTHER, SELFPAY ==
--- NOTE | 2024-02-28 12:35 | AM.OFFWIN_ITS ---
Intake Vital Signs 02/28/24 12:36 Height 5 ft 1 in Weight 244 lb BMI 46.1 BP 110/66 Blood Pressure Location Rt brachial Position Sitting Pulse 102 H Pulse Source Pulse Oximeter Temp 97.1 F Temp Source Oral Pulse Oximetry (%) 98 Oxygen Delivery Method Room Air Intake Visit Reasons: rt knee can not straighten leg Intake Note: pt c/o RT knee pain. Started Saturday morning Patient Tobacco Use Status: Never used Tobacco Allergies Penicillins [PENICILLINS] Allergy (Intermediate, Verified 02/28/24 12:36) HIVES phenobarbital [PHENOBARBITAL] Allergy (Intermediate, Verified 02/28/24 12:36) HIVES Do you need a note to return to daycare/school/sports/work: No HPI HPI Comments History of Present Illness Details 28 y/o female patient who presents to [facility] walk in clinic with c/o right knee pain for few days now. Reports h/o Arthritis on her knees and used to take NSAIDs with good relief, but now cannot take NSAIDs due to being . Pt is 28 weeks . Denies trauma or injury today. Reports inability to bear weight on the leg, pain worse with walking. [facility] History (Updated 02/19/24 @ 13:39 by Anne Castillo PA-C) Obesity Hearing deficit Morbid obesity with BMI of 40.0-44.9, adult Hidradenitis suppurativa Surgical History History of ear surgery History of tonsillectomy and adenoidectomy Family History Father Pacemaker Stroke Asthma Hypertension Mother Hypertension Asthma Chronic mental illness Anxiety and depression Social History Alcohol intake: current Alcohol intake frequency: holidays/special occasions only Patient Tobacco Use Status: Never used Tobacco Current occupational status: employed Current occupation: Mental health counselor Sexual orientation: Straight/Heterosexual Gender identity: Female Cognitive needs: No Hearing needs: No Vision needs: No Female Reproductive History Menstrual Age of Menarche: 9 Review of Systems Const All systems reviewed & are unremarkable except as noted in HPI and below Physical Exam Vital Signs: Last Vital Signs Temp 97.1 F 02/28/24 12:36 Pulse 102 H 02/28/24 12:36 BP 110/66 02/28/24 12:36 Pulse Ox 98 02/28/24 12:36 Oxygen Delivery Method Room Air 02/28/24 12:36 BMI result Body Mass Index 46.1 Const Orientation/consciousness: patient oriented x3 Neuro Other: Walks with a limp due to pain General: patient oriented x3 and moves all extremities Extrem General: Yes normal to inspection and Yes capillary refill normal Right lower extremity: knee (Limited ROM due to pain.) Details: normal to inspection and tenderness; no swelling, no crepitus, no deformity and no unusual warmth Left lower extremity: normal to inspection, full ROM and knee Details: normal to inspection and normal ROM; no tenderness, no swelling and no crepitus Psych Speech and movement: Normal speech and movement present Assessment & Plan Assessment & Plan (1) Osteoarthritis of right knee: Code(s): M17.11 - Unilateral primary osteoarthritis, right knee Qualifiers: Osteoarthritis type: unspecified Qualified Code(s): M17.11 - Unilateral primary osteoarthritis, right knee Plan: Acetaminophen for pain relief Deferred ray due to at this time. Provided Knee Brace IceHot Rest joint. Coding Level of Care Code Est Pt Level 3 (03787) Diagnoses Osteoarthritis of right knee, unspecified osteoarthritis type M17.11 Osteoarthritis type: unspecified Time Spent (min) 15
[2024-02-28 12:36] VITALS: BP 110/66; PULSE 102; TEMP 36.2; O2SAT 98; BMI 46.1
== END 2024-02-28 13:09 | disposition home or self-care (01) ==
PROVIDERS: PCP Internal Medicine; Visit Provider Nurse Practitioner Family
DX: M17.11 Unilateral primary osteoarthritis, right knee (principal)
CPT/HCPCS: 99213

== ENCOUNTER 2024-07-06 08:40 | Outpatient (REF) | payer OTHER, SELFPAY | END 2024-07-06 08:41 | disposition home or self-care (01) | LOC: HO.SH 08:40 | PROVIDERS: Visit Provider Internal Medicine | DX: Z01.118 Encounter for examination of ears and hearing with other abnormal findings (principal); H90.A31 Mixed conductive and sensorineural hearing loss, unilateral, right ear with restricted hearing on the contralateral side; H90.A22 Sensorineural hearing loss, unilateral, left ear, with restricted hearing on the contralateral side | CPT/HCPCS: 92557; 92567 ==

== ENCOUNTER 2024-07-09 14:03 | Outpatient (AMB) | payer OTHER, SELFPAY ==
[2024-07-09 14:13] VITALS: BP 118/76; BMI 44.6
--- NOTE | 2024-07-09 14:13 | A.OFFVIS_ITS ---
Vital Signs 07/09/24 14:13 Height 5 ft 1 in Weight 236 lb BMI 44.6 BP 118/76 Intake Visit Reasons: depo Photographic Processor Required: No Information Interpreted: non-clinical & clinical Accompanied by: Self / Same As Patient Allergies Penicillins [PENICILLINS] Allergy (Intermediate, Verified 07/09/24 14:19) HIVES phenobarbital [PHENOBARBITAL] Allergy (Intermediate, Verified 07/09/24 14:19) HIVES Is last menstrual period known: No (depo) HPI Comments Details: Presenting for Depo-Provera shot. Last shot was on 04/30 day 1. The patient is doing well with no complaint, minimal vaginal bleeding, no side effects, no weight gain, mood changes or hair loss [facility] Medical History Obesity Hearing deficit Morbid obesity with BMI of 40.0-44.9, adult Hidradenitis suppurativa Surgical History History of ear surgery History of tonsillectomy and adenoidectomy Family History Father Pacemaker Stroke Asthma Hypertension Mother Hypertension Asthma Chronic mental illness Anxiety and depression Social History Alcohol intake: current Alcohol intake frequency: holidays/special occasions only Patient Tobacco Use Status: Never used Tobacco Current occupational status: employed Current occupation: Mental health counselor Sexual orientation: Straight/Heterosexual Gender identity: Female Cognitive needs: No Hearing needs: No Vision needs: No Female Reproductive History Menstrual Age of Menarche: 9 control method: progesterone injection Review of Systems Const All systems reviewed & are unremarkable except as noted in HPI and below Reports as per HPI and Reports no additional complaints GI Reports no additional complaints Reports no additional complaints Physical Exam Vital Signs: Last Vital Signs BP 118/76 07/09/24 14:13 BMI result Body Mass Index 44.6 Assessment & Plan Assessment & Plan (1) Contraceptive management: Code(s): Z30.9 - Encounter for contraceptive management, unspecified Category: Medical Plan: Explained to the patient it has been 70 days from the last shot, the patient is not due for the next shot. Will schedule nurse visit for next Depo-Provera on 07/20/24. Discussed with the patient the potential side effects of Depo- Provera. Instructions given the patient to call in case of mood changes, vaginal bleeding, hair loss or weight gain. All questions answered, the patient verbalized understanding and agreed with the plan. Coding Level of Care Code Est Pt Level 3 (17465) Diagnoses Contraceptive management Z30.9
== END 2024-07-09 14:32 | disposition home or self-care (01) ==
LOC: HO.HWS 14:03
PROVIDERS: PCP Internal Medicine; Visit Provider Obstetrics & Gynecology
DX: Z30.9 Encounter for contraceptive management, unspecified (principal)
CPT/HCPCS: 99213

== ENCOUNTER → 2024-07-09 14:03 | Outpatient (BNVA) | payer OTHER, SELFPAY | PROVIDERS: PCP Internal Medicine; Visit Provider Obstetrics & Gynecology | DX: Z30.9 Encounter for contraceptive management, unspecified (principal) | CPT/HCPCS: 99212 ==

== ENCOUNTER 2024-07-20 11:00 | Outpatient (AMB) | payer OTHER, SELFPAY ==
[2024-07-20 11:11] VITALS: BMI 45.0
--- NOTE | 2024-07-20 11:11 | AM.OFFVISNUR ---
Vital Signs 07/20/24 11:11 Height 5 ft 1 in Weight 238 lb BMI 45.0 Intake Visit Reasons: depo shot Allergies Penicillins [PENICILLINS] Allergy (Intermediate, Verified 07/09/24 14:19) HIVES phenobarbital [PHENOBARBITAL] Allergy (Intermediate, Verified 07/09/24 14:19) HIVES Nursing Note Alyse is here today for her 2nd Depo-Provera inj. 1st being PP 2 mos ago at [facility] [place]. Pt started her menses today. Urine HCG is neg, Inj given , no complaints offered. Follow up in 12 weeks for next inj. Office Procedures Depo Questionnaire If YES to any of the following questions, please consult a provider. Date of last injection: 04/30/24 Date of last menstrual period: 07/20/24 Menstrual pattern since last injection has been: Normal test in office results: Negative Irregular bleeding?: No Breast lumps or other breast changes?: No Changes in weight or appetite?: No Depression or changes in mood?: No Abnormal hair growth or loss?: No Skin problems (rash, acne, discoloration)?: No Pain at the injection site?: No Headaches?: No Nervousness?: No Abdominal pain or cramping?: No Dizziness or nausea?: No Fatigue or weakness?: No Decrease in sexual drive?: No Chest pain or shortness of breath?: No Swelling in arms or legs?: No Form completed by?: Diana Eduardo LPN Office Meds Depo-Provera 150 mg/mL intramuscular syringe Performing Provider: Vinay Lamar MD Performing Location: [facility] Administered by: Jalyn Eduardo LPN on 07/20/24 11:12 Dose Route Admin Location Dispensed Lot Number Expiration Date [facility] Casting Inspector 150 mg IM Lt. deltoid 1 mL [id number] 03/28/26 [address]-36 Eugia Results AMB Test Urine AMB Test Urine Negative Last Edit by Jalyn Eduardo LPN on 07/20/24 11:18 Assessment & Plan Assessment & Plan Orders: Orders AMB Medroxyprogesterone Injection Patient Supplied Today Z30.9 - Encounter for contraceptive management, unspecified Medications: New Depo-Provera (medroxyprogesterone) 150 mg IM ONCE 1 mL 0RF NS Z30.9 - Encounter for contraceptive management, unspecified
== END 2024-07-20 13:23 | disposition home or self-care (01) ==
LOC: HO.HWS 11:00
PROVIDERS: PCP Internal Medicine; Visit Provider Advanced Practice Midwife
DX: Z30.9 Encounter for contraceptive management, unspecified (principal)

== ENCOUNTER → 2024-07-20 11:00 | Outpatient (BNVA) | payer OTHER, SELFPAY | PROVIDERS: PCP Internal Medicine; Visit Provider Advanced Practice Midwife | DX: Z30.9 Encounter for contraceptive management, unspecified (principal) | CPT/HCPCS: 96372; 99211; J1050 ==

== ENCOUNTER 2024-09-18 11:24 | Outpatient (AMB) | payer OTHER, SELFPAY ==
[2024-09-18 11:46] VITALS: BP 110/78; PULSE 90; O2SAT 98; BMI 45.7
--- NOTE | 2024-09-18 11:46 | MHC.PC.OV ---
Vital Signs 09/18/24 11:46 Height 5 ft 1 in Weight 242 lb BMI 45.7 BP 110/78 Blood Pressure Location Lt brachial Position Sitting Pulse 90 Pulse Source Pulse Oximeter Pulse Oximetry (%) 98 Oxygen Delivery Method Room Air Intake Visit Reasons: pe Allergies Penicillins [PENICILLINS] Allergy (Intermediate, Verified 09/18/24 11:47) HIVES phenobarbital [PHENOBARBITAL] Allergy (Intermediate, Verified 09/18/24 11:47) HIVES Medication List - Last Reconciled 09/18/24 by Silvestre Batista MD acetaminophen 1,000 mg (2 x 500 mg) PO Q6H PRN blood sugar diagnostic (FreeStyle Lite Strips) As directed blood-glucose meter (FreeStyle Lite Meter kit) As directed fexofenadine (Yelitza Hives) 180 mg PO DAILY fluticasone propionate 50 mcg/actuation 2 sprays intranasal DAILY lancets (FreeStyle Lancets) As directed pen needle, diabetic (BD Ultra-Fine Mini Pen Needle) As directed Tobacco use date assessed: 09/18/24 Dental Screening Dental Screen Date: 09/18/24 Did you have a dental visit in the last 12 months?: Yes Did you have a dental problem in the last 6 months where you did not have access to dental care?: No Was dental information given to patient?: Patient has dentist HPI pe HPI Details 04/29/2024 of baby boy The patient is a 29-year-old female presenting for a physical examination. She has a history of morbid obesity and gastroesophageal reflux disease (GERD) and reports some issues related to her weight have impacted her daily life. The patient was last seen in August 2023 when she was . Her past medical history includes knee osteoarthritis, for which she has been diagnosed in February, and she has previously visited in January for further assessment. The patient mentioned knee pain without specific resolution. Despite the presence of GERD, she denies any ongoing pain or discomfort such as dysphagia or esophagitis; however, frequent monitoring for symptoms is noted due to her condition. History of is vital as she had been during her last visit earlier this year. Also of note, her COVID-19 immunization status with three doses was reviewed, although concerns regarding the flu vaccination were briefly addressed. A referral to therapy for challenges and job-seeking stress was mentioned as desired. - Reviewed and confirmed COVID-19 vaccination status with three completed doses. - Need for updated blood work noted, as the last tests were from 2019. - Discussed vaccination status for other immunizations and emphasized the importance of staying up to date. - Mentioned a potential requirement for referral for therapy related to issues and employment stress. - Currently seeking employment and reports challenges related to managing a new baby. - Expressed stress related to balancing responsibilities of motherhood and job hunting. - - Musculoskeletal: Reports knee pain. - No mention of symptoms in other systems during the conversation. [facility] Medical History Obesity Hearing deficit Morbid obesity with BMI of 40.0-44.9, adult Hidradenitis suppurativa Surgical History History of ear surgery History of tonsillectomy and adenoidectomy Family History (Updated 09/18/24 @ 12:01 by Silvestre Batista MD) Father Pacemaker Stroke Asthma Hypertension Mother Hypertension Asthma Chronic mental illness Anxiety and depression Paternal Aunt Pancreatic cancer Social History (Updated 09/18/24 @ 12:02 by Silvestre Batista MD) Housing: House Alcohol intake: current Alcohol intake frequency: holidays/special occasions only Comment: once a month 1-2 drinks Patient Tobacco Use Status: Never used Tobacco Tobacco use type: Cigarette Years Smoked: edible e-Cigarette/Vaping Use: Never Used Second Hand Smoke Exposure: No Current occupational status: employed Current occupation: Mental health counselor Sexual orientation: Straight/Heterosexual Gender identity: Female Cognitive needs: No Hearing needs: No Vision needs: No Female Reproductive History Menstrual Age of Menarche: 9 Questionnaire PHQ-9 Over the last 2 weeks, how often have you been bothered by any of the following problems? 1. Little interest or pleasure in doing things: several days 2. Feeling down, depressed, or hopeless: several days 3. Trouble falling or staying asleep, or sleeping too much: not at all 4. Feeling tired or having little energy: several days 5. Poor appetite or overeating: not at all 6. Feeling bad about yourself - or that you are a failure or have let yourself or your family down: several days 7. Trouble concentrating on things, such as reading the newspaper or watching television: several days 8. Moving or speaking so slowly that other people could have noticed. Or the opposite - being so fidgety or restless that you have been moving around a lot more than usual: not at all 9. Thoughts that you would be better off or of hurting yourself in some way: not at all Total score: 5 Depression Screening Interpretation: Positive Depression Screening Done: Yes 61064 - PHQ-9 Billing: Yes Source: Developed by Drs. Nick Gautam, Tiny Espana, Ayaan Aaron and colleagues, with an educational juan from [employer]. Thrive Questionnaire Date Thrive assessed: 09/16/24 I am a: Patient What is your living situation today?: I have a steady place to live Within the past 12 months, did the food you bought not last and you didn't have the money to get more?: Never true Within the past 12 months, did you worry whether your food would run out before you got money to buy more?: Never true Do you have trouble paying for medicines?: Yes Do you have trouble getting transportation to medical appointments?: No Do you have trouble paying your heating and electricity bill?: No Do you have trouble taking care of your child, family member or friend?: No Do you have trouble with day-to-day activities such as bathing, preparing meals, shopping, managing finances, etc.?: No Are you currently unemployed and looking for a job?: Yes Are you interested in more education?: Yes Please select the resources that you would like help with: Childcare and Job search/training Currently or been in a relationship where the following occur: No concerns reported THRIVE Score: 0 AUDIT C Alcohol Use Questionnaire (AUDIT-C) 1. How often do you have a drink containing alcohol?: Monthly or less 2. How many drinks containing alcohol do you have on a typical day when you are drinking?: 1 or 2 3. How often do you have six or more drinks on one occasion?: Never Total Score: 1 ARABELLA-7 AMB Questionnaire ARABELLA-7 Date ARABELLA - 7 assessed: 09/18/24 Feeling nervous, anxious, or on edge: 3 = Nearly every day Not being able to stop or control worryin = Nearly every day Worrying too much about different things: 3 = Nearly every day Trouble relaxin = More than half the days Being so restless that it is hard to sit still: 0 = Not at all Becoming easily annoyed or irritable: 3 = Nearly every day Feeling afraid as if something awful might happen: 0 = Not at all Total ARABELLA-7 score (0-4 normal; 5-9 mild; 10-14 moderate; 15-21 severe): 14 Source: Developed by Drs. Nick Gautam, Tiny Espana, Ayaan Aaron and colleagues, with an educational juan from [employer]. ARABELLA-7 Assessment Billing ARABELLA-7 Assessment Tool: ARABELLA-7 Assessment 84892 Review of Systems Const Denies poor appetite and Denies weakness Eyes Denies no additional complaints ENT Reports Normal hearing present, Denies dizziness, Denies nasal congestion, Denies tinnitus and Denies sore throat Card Denies chest pain, Denies syncope, Denies rapid heart rate and Denies dyspnea Resp Denies cough and Denies dyspnea GI Denies change in stool character, Reports constipation, Denies diarrhea, Denies nausea and Denies vomiting Denies urinary frequency, Denies difficulty voiding and Denies dysuria Neuro Reports Normal hearing present, Denies confusion, Denies dizziness, Denies syncope and Denies weakness Psych Denies confusion Physical exam (Primary Care) Vital Signs: Last Vital Signs Pulse 90 09/18/24 11:46 BP 110/78 09/18/24 11:46 Pulse Ox 98 09/18/24 11:46 Oxygen Delivery Method Room Air 09/18/24 11:46 BMI result Body Mass Index 45.7 Tobacco/Smoking Status: Tobacco use Status Tobacco use date assessed 09/18/24 09/18/24 11:51 Patient Tobacco Use Status Never used Tobacco 09/18/24 12:02 Tobacco use type Cigarette 09/18/24 12:02 e-Cigarette/Vaping Use Never Used 09/18/24 12:02 PHQ-9: PHQ-9 Score PHQ-9: Total score 5 09/18/24 11:57 Depression Screening Interpretation: Positive Thrive Assessment: Date of Thrive Assessment Date Thrive assessed 09/16/24 09/18/24 11:51 Currently or been in a relationship where the following occur: No concerns reported Const General: No confusion Orientation/consciousness: No confusion HENMT Head: Yes normocephalic Ears: external ears normal and TM's normal bilaterally Face and sinus: Yes normal facial exam Mouth: moist mucous membranes Throat: Yes tonsils normal Eyes Conjunctivae: conjunctivae normal Pupils: Equal, round and reactive pupils present and Pupil accommodation reflex normal Direct Ophthalmoscopy: normal light reflex Neck Neck: No lymphadenopathy Thyroid: Thyroid normal Chest Chest palpation & inspection: normal inspection of the chest Resp Effort & Inspection: normal respiratory effort and no audible wheezes Auscultation: clear to auscultation bilaterally, no crackles, no wheezes and lung sounds not diminished Cardio Rate: regular rate Rhythm: regular rhythm Peripheral pulses: radial pulses present and dorsalis pedis present GI Palpation (GI): no masses Auscultation: normal bowel sounds and normoactive bowel sounds Rectal Exam - Female: deferred Skin General skin exam: no rashes or lesions noted Rashes: no rashes Neuro General: No confusion Cranial nerves: Yes Equal, round and reactive pupils present and Yes Normal hearing present Cognition (Neuro): normal cognition Gait exam (Neuro): Normal gait present Motor exam (neuro): 5/5 motor strength present throughout Deep tendon reflexes (DTR's): Right brachioradialis reflex intensity grade: 2+, Left brachioradialis reflex intensity grade: 2+, Right patellar reflex intensity grade: 2+ and Left patellar reflex intensity grade: 2+ Extrem General: No edema Coding Level of Care Code Est Pt Prev Care 18-39y(81522) Diagnoses Annual physical exam Z00.00 GERD (gastroesophageal reflux disease) K21.9 Generalized anxiety disorder F41.1 Additional Codes ARABELLA-7 Assessment Billing - ARABELLA-7 Assessment Tool: ARABELLA-7 Assessment 04628 ([id number]) PHQ-9 - 69510 - PHQ-9 Billing: Yes ([id number]) Assessment & Plan Assessment & Plan (1) Annual physical exam: Code(s): Z00.00 - Encounter for general adult medical examination without abnormal findings Category: Medical (2) GERD (gastroesophageal reflux disease): Code(s): K21.9 - Gastro-esophageal reflux disease without esophagitis Category: Medical (3) Generalized anxiety disorder: Code(s): F41.1 - Generalized anxiety disorder Category: Medical Plan History of Present Illness The patient is a 29-year-old female presenting for a physical examination. She has a history of morbid obesity and gastroesophageal reflux disease (GERD) and reports some issues related to her weight have impacted her daily life. The patient was last seen in August 2023 when she was . Her past medical history includes knee osteoarthritis, for which she has been diagnosed in February, and she has previously visited in January for further assessment. The patient mentioned knee pain without specific resolution. Despite the presence of GERD, she denies any ongoing pain or discomfort such as dysphagia or esophagitis; however, frequent monitoring for symptoms is noted due to her condition. History of is vital as she had been during her last visit earlier this year. Also of note, her COVID-19 immunization status with three doses was reviewed, although concerns regarding the flu vaccination were briefly addressed. A referral to therapy for challenges and job-seeking stress was mentioned as desired. Health Maintenance - Reviewed and confirmed COVID-19 vaccination status with three completed doses. - Need for updated blood work noted, as the last tests were from 2019. - Discussed vaccination status for other immunizations and emphasized the importance of staying up to date. - Mentioned a potential requirement for referral for therapy related to issues and employment stress. Social History - Currently seeking employment and reports challenges related to managing a new baby. - Expressed stress related to balancing responsibilities of motherhood and job hunting. - No specific details regarding substance use, exercise, or dietary habits were discussed. Review of Systems - Musculoskeletal: Reports knee pain. - No mention of symptoms in other systems during the conversation. Physical Exam General: Cooperative, morbidly obese, comfortable, no acute distress and well developed Orientation: Patient oriented x3 Limitations: No limitations Head: Normal to inspection Ears: Hearing grossly normal bilaterally Nose: Normal external nose present Face and sinus: Normal facial exam Eyes: Appearance normal, both eyes and all related structures Neck: Normal visual inspection and Yes full ROM Respiratory: Normal respiratory effort and able to speak in complete sentences. Clear to auscultation bilaterally Cardiovascular: Regular rate and rhythm. Normal S1 and S2 GI: Normal to inspection. Soft to palpation and nontender Skin: No rashes or lesions noted Neuro: Patient oriented x3 Extremities: Normal to inspection, right knee with diagnosis of arthritis Results Plan Patient was informed and verbally consented to the use of an ambient scribe for clinic note documentation during this visit. 1. Morbid Obesity Discussion noted the importance of weight management and potential referrals to dietary counseling if needed in the future. 2. Gastroesophageal Reflux Disease Gerd Patient to continue monitoring GERD symptoms. Evaluate treatment efficacy and consider further gastroenterological review if symptoms persist. 3. Knee Osteoarthritis Patient to monitor knee pain and consider physical therapy evaluation to assist with functionality and pain management. 4. Mental Health/ Considerations Referral to therapy proposed, specific for -related emotional strain and stress while job seeking. Discussion Notes During the visit, we reviewed the patient's overall health and management relating to her current conditions. The benefits and importance of staying current with vaccines, especially during the period, were emphasized. We discussed future planning for further blood tests given the out-of-date nature of her last assessments. The patient expressed willingness to consider therapy to address emotional challenges. I explained the necessity of keeping her orthopedic symptoms in check with therapies as necessary. We conversed on broader health maintenance given her history of obesity and GERD, focusing on weight management and lifestyle adjustments. Patient Instructions - Maintain current GERD treatment plan and monitor for any symptomatic changes. - Consider scheduling a blood work appointment as advised. - Follow through with therapy referral to address fatigue and job-related stress. - Continue tracking vaccination status and keep up to date. - Practice stress-reducing techniques and self-care routines during job search. - Manage knee pain; consider physical therapy if symptoms intensify. Orders: Orders Comprehensive Met. Panel Today K21.9 - Gastro-esophageal reflux disease without esophagitis Free T4 (Free Thyroxine) Today K21.9 - Gastro-esophageal reflux disease without esophagitis Lipid Panel Today E78.00 - Pure hypercholesterolemia, unspecified, K21.9 - Gastro-esophageal reflux disease without esophagitis Vitamin D 25-OH Total Today K21.9 - Gastro-esophageal reflux disease without esophagitis UA CC w/rflx Micro + Cult Today K21.9 - Gastro-esophageal reflux disease without esophagitis, R30.0 - Dysuria Complete Blood Count Auto Diff Today K21.9 - Gastro-esophageal reflux disease without esophagitis Thyroid Stimulating Hormone Today K21.9 - Gastro-esophageal reflux disease without esophagitis Hemoglobin A1c Today K21.9 - Gastro-esophageal reflux disease without esophagitis Vitamin B12 and Folate Today K21.9 - Gastro-esophageal reflux disease without esophagitis Referrals Psychiatry Referral F41.1 - Generalized anxiety disorder Speech and Hearing Referral H91.90 - Unspecified hearing loss, unspecified ear Medications: New omeprazole 20 mg PO DAILY 30 caps 0RF K21.9 - Gastro-esophageal reflux disease without esophagitis
== END 2024-09-18 12:22 | disposition home or self-care (01) ==
PROVIDERS: PCP Internal Medicine; Visit Provider Internal Medicine
DX: Z00.00 Encounter for general adult medical examination without abnormal findings (principal); K21.9 Gastro-esophageal reflux disease without esophagitis; F41.1 Generalized anxiety disorder

== ENCOUNTER → 2024-09-18 11:24 | Outpatient (BNVA) | payer OTHER, SELFPAY | PROVIDERS: PCP Internal Medicine; Visit Provider Internal Medicine | DX: Z00.00 Encounter for general adult medical examination without abnormal findings (principal); K21.9 Gastro-esophageal reflux disease without esophagitis; F41.1 Generalized anxiety disorder | CPT/HCPCS: 96127; 99395 ==

== ENCOUNTER 2024-09-28 08:26 | Outpatient (REF) | payer OTHER, SELFPAY ==
--- OUTSIDE RECORDS SUMMARY | 2024-09-28 08:48 | XMS_ITS | Encounter Summary ---
Author Organization [facility] Address [address] [place] [address] Phone Care Team Providers Care College And Career Counselor Name Role Phone Monica Francis MD Primary Care Provider [phone] Encounter Details Date Type Department Care Team (Late st Contact Info) Description 02/15/2014 Documentation [facility] [place] Family Medicine [address] [place] [address] Family Medicine, Physician [address], [place] [id number] Social History Tobacco Use Types Packs/Day Years Used Date Smoking Tobacco: Never Assessed Comments Unknown Sex and Gender Information Value Date Recorded Sex Assigned at Not on file Legal Sex Female 5:01 PM EDT Gender Identity Not on file Sexual Orientation Not on file documented as of this encounter Plan of Treatment Not on file documented as of this encounter Visit Diagnoses Not on filedocumented in this encounter Care Teams College And Career Counselor Relationship Specialty Start Date End Date Monica Francis MD [address] [place] [address] [place] [id number] PCP - General 03/08/17 01/27/23 documented as of this encounter
--- OUTSIDE RECORDS SUMMARY | 2024-09-28 08:48 | XMS_ITS | Encounter Summary ---
Author Organization [facility] Address [address] [place] [address] Phone Care Team Providers Care City Councilman Name Role Phone Monica Francis MD Primary Care Provider [phone] Encounter Details Date Type Department Care Team (Late st Contact Info) Description 01/12/2010 Documentation [facility] [place] Family Medicine [address] [place] [address] Family Medicine, Physician [address], [place] [phone] Social History Tobacco Use Types Packs/Day Years [...] on filedocumented in this encounter Care Teams City Councilman Relationship Specialty Start Date End Date Monica Francis MD [address] [place] [address] [place] [id number] PCP - General 03/08/17 01/27/23 documented as of this encounter
--- OUTSIDE RECORDS SUMMARY | 2024-09-28 08:49 | XMS_ITS | Encounter Summary ---
Author Organization [facility] Address [address] [place] [address] Phone Care Team Providers Care Lead Cargoman Name Role Phone Monica Francis MD Primary Care Provider [phone] Encounter Details Date Type Department Care Team (Late st Contact Info) Description 03/14/2017 Conversion Encounter [facility] [address] [place] [address] Social History Tobacco Use Types Packs/Day Years Used Date Smoking Tobacco: Never Comments:Never smoker Comments Unknown Sex and Gender Information Value Date Recorded Sex Assigned at Not on file Legal Sex Female 5:01 PM EDT Gender Identity Not on file Sexual Orientation Not on file documented as of this encounter Plan of Treatment Not on file documented as of this encounter Visit Diagnoses Not on filedocumented in this encounter Care Teams Lead Cargoman Relationship Specialty Start Date End Date Monica Francis MD [address] [place] [address] PCP - General 03/08/17 01/27/23 documented as of this encounter
--- OUTSIDE RECORDS SUMMARY | 2024-09-28 08:49 | XMS_ITS | Encounter Summary ---
Author Organization [facility] Address [address] [place] [address] Phone Care Team Providers Care Baggage Checker Name Role Phone Monica Francis MD Primary Care Provider [phone] Encounter Details Date Type Department Care Team (Late st Contact Info) Description 08/31/2011 Documentation [facility] [place] Family Medicine [address] [place] [address] Family Medicine, Physician [address] [place], [place] [phone] Social History Tobacco Use Types Packs/Day Years [...] on filedocumented in this encounter Care Teams Baggage Checker Relationship Specialty Start Date End Date Monica Francis MD [address] [place] [address] [place] [address] PCP - General 03/08/17 01/27/23 documented as of this encounter
--- OUTSIDE RECORDS SUMMARY | 2024-09-28 08:49 | XMS_ITS | Encounter Summary ---
Author Organization [facility] Address [address] [place] [address] Phone Care Team Providers Care Knife Glazer Name Role Phone Monica Francis MD Primary Care Provider [phone] Encounter Details Date Type Department Care Team (Late st Contact Info) Description 05/15/2010 Documentation [facility] [place] Family Medicine [address] [place] [address] Family Medicine, Physician [address] [place], [place] [phone] Social History Tobacco Use Types Packs/Day Years [...] on filedocumented in this encounter Care Teams Knife Glazer Relationship Specialty Start Date End Date Monica Francis MD [address] [place] [address] [place] [address] PCP - General 03/08/17 01/27/23 documented as of this encounter
--- OUTSIDE RECORDS SUMMARY | 2024-09-28 08:49 | XMS_ITS | Encounter Summary ---
Author Organization [facility] Address [address] [place] [address] Phone Care Team Providers Care Assembler Installer Structures Name Role Phone Monica Francis MD Primary Care Provider Encounter Details Date Type Department Care Team (Late st Contact Info) Description 04/20/2016 Documentation [facility] [place] Family Medicine [address] [place] [address] Family Medicine, Physician [address] [place] [address] Social History Tobacco Use Types Packs/Day Years [...] on filedocumented in this encounter Care Teams Assembler Installer Structures Relationship Specialty Start Date End Date Monica Francis MD [address] [place] [address] PCP - General 03/08/17 01/27/23 documented as of this encounter
--- OUTSIDE RECORDS SUMMARY | 2024-09-28 08:49 | XMS_ITS | Encounter Summary ---
Author Organization [facility] Address [address] [place] [address] Phone Care Team Providers Care Laboratory Apparatus Glass Blower Name Role Phone Monica Francis MD Primary Care Provider [phone] Encounter Details Date Type Department Care Team (Late st Contact Info) Description 07/31/2011 Documentation [facility] [place] Family Medicine [address] [place] [address] Family Medicine, Physician [address] [place], [place] [phone] Social History Tobacco Use Types Packs/Day Years [...] on filedocumented in this encounter Care Teams Laboratory Apparatus Glass Blower Relationship Specialty Start Date End Date Monica Francis MD [address] [place] [address] [place] [address] PCP - General 03/08/17 01/27/23 documented as of this encounter
--- OUTSIDE RECORDS SUMMARY | 2024-09-28 08:49 | XMS_ITS | Encounter Summary ---
Author Organization [facility] Address [address] [place] [address] Phone Care Team Providers Care Maltster Name Role Phone Monica Francis MD Primary Care Provider [phone] Encounter Details Date Type Department Care Team (Late st Contact Info) Description 01/25/2012 Documentation [facility] [place] Family Medicine [address] [place] [address] Family Medicine, Physician [address] [place], [place] [phone] Social History Tobacco Use Types Packs/Day Years [...] on filedocumented in this encounter Care Teams Maltster Relationship Specialty Start Date End Date Monica Francis MD [address] [place] [address] [place] [address] PCP - General 03/08/17 01/27/23 documented as of this encounter
--- OUTSIDE RECORDS SUMMARY | 2024-09-28 08:49 | XMS_ITS | Encounter Summary ---
Author Organization [facility] Address [address] [place] [address] Phone Care Team Providers Care Director Of Supply Chain Name Role Phone Monica Francis MD Primary Care Provider [phone] Encounter Details Date Type Department Care Team (Late st Contact Info) Description 03/20/2013 Documentation [facility] [place] Family Medicine [address] [place] [address] Family Medicine, Physician [address], [place] [phone] Social History Tobacco Use Types Packs/Day Years [...] on filedocumented in this encounter Care Teams Director Of Supply Chain Relationship Specialty Start Date End Date Monica Francis MD [address] [place] [address] [place] [address] PCP - General 03/08/17 01/27/23 documented as of this encounter
--- OUTSIDE RECORDS SUMMARY | 2024-09-28 08:49 | XMS_ITS | Encounter Summary ---
Author Organization [facility] Address [address] [place] [address] Phone Care Team Providers Care Derrick Follower Name Role Phone Monica Francis MD Primary Care Provider [phone] Encounter Details Date Type Department Care Team (Late st Contact Info) Description 09/30/2012 Documentation [facility] [place] Medicine [address] [place] [address] Family Medicine, Physician [address] [place], [place] [phone] Social History Tobacco Use Types Packs/Day Years [...] on filedocumented in this encounter Care Teams Derrick Follower Relationship Specialty Start Date End Date Monica Francis MD [address] [place] [address] [place] [address] PCP - General 03/08/17 01/27/23 documented as of this encounter
--- OUTSIDE RECORDS SUMMARY | 2024-09-28 08:49 | XMS_ITS | Clinical Summary ---
Author Organization [facility] Address [address] [place] [address] Phone Care Team Providers Care Publicity Agent Name Role Phone Unavailable Primary Care Provider Unavailabl e Immunizations Immunization Administration Dates Next Due DTP 1994,1994,1994 DTaP 5 01/23/1999,12/18/1995 HPV, Quadrivalent 03/22/2008,04/23/2007,02/19/20 07 Hep A, Adult 08/27/2014,02/10/2014 Hep B, ped/adol 11/04/1995,1994,1994 Hib (PRP-T) 11/04/1995, 5,1994,07/20 IPV 1994 Influenza Split 09/20/2011, 0,07/03/2002,06/03,05/22/2001 Influenza, injectable, quadr ivalent, preservative free 06/12/2013 Influenza, injectable, trivalent 009,06/29/2008,08/11/2004,06/16,07/03/2002,06/03/2002,05/22/2001 MMR 01/23/1999,11/04/1995 Meningococcal Conj (Menactra) MCV4P 03/22/2008,0 01/22/2006 OPV 01/23/1999,1994,1994 Tdap 01/22/2006 Varicella 03/22/2008,12/24/1996 Family History Relation Name Status Comments Brother Brother: Cerebr al palsy Father Father: Heart p roblems, Asthma Mother Mother: Chiari malformation, Kidney stones, Hypertension, Asthma Other Family history of Autism, Family history of Hyperlipidemia, Family history of Diabetes mellitus, Family history of Asthma, Family history of Seizure disorder, Family history of Obesity Sister Sister: Skin pr oblems, Obesity Social History Tobacco Use Types Packs/Day Years Used Date Smoking Tobacco: Never Comments:Never smoker Comments Unknown Sex and Gender Information Value Date Recorded Sex Assigned at Not on file Legal Sex Female 5:01 PM EDT Gender Identity Not on file Sexual Orientation Not on file Last Filed Vital Signs Vital Sign Reading Time Taken Comments Blood Pressure 124/84 02/22/2015 12:00 AM EDT Pulse 95 08/03/2014 12:00 AM EST Temperature 36.7 ??C (98 ??F) 08/03/2014 12: 00 AM EST Respiratory Rate - - Oxygen Saturation - - Inhaled Oxygen Concentration - - Weight 85.6 kg (188 lb 12.8 oz) 015 12:00 AM EDT Height 154.9 cm (5' 1 ) 02/22/2015 12:0 0 AM EDT Body Mass Index 35.67 02/22/2015 12:00 AM EDT Plan of Treatment Health Maintenance Due Date Last Done Comments DTaP,Tdap,and Td Vaccines (7 - Td or Tdap) 01/23/2016 01/22/2006, 01/23/1999, 12/18/1995, Additional history exists Influenza Vaccines (#1) 2024 06/12/20 13, 09/20/2011, 04/05/2010, Additional history exists COVID-19 Vaccine ( season) 2024 HIB Vaccines Completed 11/04/1995, 11/26, 1994, Additional history exists Hepatitis B Vaccines Completed 11/04/1995, 1994, 1994 IPV Vaccines Completed 01/23/1999, 11/26, 1994, Additional history exists MMR Vaccines Completed 01/23/1999, 11/04/1995 HPV Vaccines Completed 03/22/2008, 03/30, 02/18/2007 Meningococcal Vaccine Aged Out 03/22/2008, 006 No longer eligible based on patient's age to complete this topic Varicella Vaccines Completed 03/22/2008, 12/24/1996 Hepatitis A Vaccines Aged Out 08/27/2014, 02/11/20 14 No longer eligible based on patient's age to complete this topic Men B Vaccine Aged Out No longer elig ible based on patient's age to complete this topic Pneumococcal Vaccine Aged Out No long er eligible based on patient's age to complete this topic Procedures * Due to [place] [employer] law, this organization might not be sharing sensitive test results. Procedure Name Priority Date/Time Associated Diagnosis Comments CHLAMYDIA AND GONORRHEA, AMPLIFIED Routine 02/23/2015 2:08 PM EDT from Last 3 Months or Most Recently Relevant to Health Maintenance Results * Due to [place] [employer] law, this organization might not be sharing sensitive test results. * Chlamydia and Gonorrhoea, Amplified (02/23/2015 2:08 PM EDT) URINE GC AMP PROBE NEGATIVE [facility] Comment: No Neisseria Gonorrhoeae RNA detected in this patient's sample (REFERENCE RANGE/NORMAL VALUE: NOT DETECTED) NOTE: This test uses record press tender-mediated amplification method to detect rRNA from C.Trachomatis and N.Gonorrhoeae. A negative result does not preclude infection. In the case of a negative urine result, testing of an endocervical(female) or urethral(male) specimen is recommended if there is high clinical suspicion of infection. The performance characteristics of this test have not been evaluated in children. The Aptima Combo2 assay is not intended for the evaluation of suspected sexual abuse or for other medico-legal indications. The ordering provider should assess if the patient had consensual sex without risk of sexual abuse. Consult the [facility] if needed. Contact phone number . Therapeutic failure or success cannot be determined with the Aptima Combo2 assay since nucleic acid may persist following appropriate antimicrobial therapy. The Centers for Disease Control and Prevention (CDC) recommends confirmatory retesting using culture or a different nucleic acid amplification test when positive results occur, if indicated. Testing performed or reported by [facility], a Service of [facility], [address] [place] [address] Otoniel Rutledge MD, PhD, High School Music Director URINE CHLAMYDIA AMP PROBE NEGATIVE [facility] Comment: No Chlamydia Trachomatis RNA detected in this patient's sample (REFERENCE RANGE/NORMAL VALUE: NOT DETECTED) 02/23/2015 2:08 PM EDT [facility] - 02/23/2015 2:08 PM EDT URINE CHLAMYDIA GC AMP PROBE us Monica Francis MD LAB MICROBIOLOGY - GENERAL ORDER GREG Final Result [facility] [address] [facility] [place] [address], [place] from Last 3 Months or Most Recently Relevant to Health Maintenance
[2024-09-28 10:18] LABS: MANUAL DIFF FLAG NO
[2024-09-28 10:28] LABS: Basophils Absolute Auto 0.1 X10*3/uL (0.0-0.2); Basophils Percent Auto 0.8 % (0-2); Eosinophils Absolute Auto 0.3 X10*3/uL (0.0-0.4); Eosinophils Percent Auto 3.6 % (0-4); Hematocrit 41.6 % (37.0-47.0); Hemoglobin 13.4 g/dl (12.0-16.0); Imm Gran Abs Auto 0.03 X10*3/uL (0.00-0.03); Imm Gran Pct Auto 0.4 % (0.0-0.4); Lymphocytes Absolute Auto 1.8 X10*3/uL (1.2-4.9); Lymphocytes Percent Auto 21.8 % (20-40); Mean Corpuscular HGB Conc 32.2 g/dl (31.0-35.0); Mean Corpuscular Hemoglobin 26.5 pg (27.0-33.0); Mean Corpuscular Volume 82.2 fL (80.0-98.0); Mean Platelet Volume 9.5 fL (9.4-12.3); Monocytes Absolute Auto 0.7 X10*3/uL (0.1-1.2); Monocytes Percent Auto 8.2 % (2-11); Neutrophils Absolute Auto 5.5 x10*3/uL (2.0-8.3); Neutrophils Percent Auto 65.2 % (45-73); Platelet Count 378 X10*3/uL (160-400); Red Blood Count 5.06 X10*6/uL (4.20-5.50); Red Cell Distribution Width 13.3 % (11.0-16.0); White Blood Count 8.4 X10*3/uL (4.8-10.8)
[2024-09-28 10:48] LABS: Estimated Average Glucose 120 mg/dL; Hemoglobin A1C 136.9584 umol/L; Hemoglobin A1c % 5.8 % (<6.0)
[2024-09-28 11:06] LABS: Appearance Urine Clear; Color Urine Yellow; Glucose Urine UA Negative (Negative); Leukocyte Esterase Urine Small (1+) (Negative); Nitrite Urine Negative (Negative); PH 5.5 (5.0-9.0); Specific Gravity - Urine 1.025 (1.005-1.025); UMIC TRIGGER UACC YES; Urine Blood Negative (Negative); Urine Ketones Negative (Negative); Urine Protein Negative (Neg-Trace)
[2024-09-28 11:09] LABS: Bacteria Urine 2+ (None Seen); Hyaline Casts Urine 0-2 /LPF (0-2); RBC Urine 0-2 /HPF (0-2); UACC Culture Trigger YES
[2024-09-28 11:11] LABS: Alanine Aminotransferase 14 U/L (0-31); Albumin Level 3.8 g/dL (3.5-5.0); Alkaline Phosphatase 88 U/L (39-117); Anion Gap 13 (12-20); Aspartate Amino Transferase 24 U/L (5-31); Bilirubin Total 0.2 mg/dL (0.0-1.0); Blood Urea Nitrogen 11 mg/dL (9-16); Calcium 8.6 mg/dL (8.4-10.2); Carbon Dioxide 21 mmol/L (22-29); Chloride 109 mmol/L (96-108); Cholesterol 116 mg/dL (<200); Estimated Glomerular Filt Rate > 60; Glucose Random 102 mg/dL (60-115); HDL Cholesterol 41 mg/dL (>40); LDL Cholesterol Calculated 66 mg/dL (<100); Sodium 139 mmol/L (135-145); Total Protein 7.4 g/dL (6.5-8.0); Triglycerides 49 mg/dL (<150)
[2024-09-28 11:16] LABS: Free T4 (Free Thyroxine) 1.05 ng/dL (0.71-1.85); Thyroid Stimulating Hormone 1.62 uIU/mL (0.32-4.0); Vitamin D 25-OH Total 26.4 ng/mL (>30)
[2024-09-28 11:25] LABS: Folate 14.6 ng/mL (> or = 4.0); Vitamin B12 418 pg/mL (200-900)
== END 2024-09-28 08:27 | disposition home or self-care (01) ==
LOC: HO.HMGCLDS 08:26
PROVIDERS: PCP Internal Medicine; Visit Provider Internal Medicine
DX: K21.9 Gastro-esophageal reflux disease without esophagitis (principal); E78.00 Pure hypercholesterolemia, unspecified
CPT/HCPCS: 36415; 80053; 80061; 81001; 81003; 82306; 82607; 82746; 83036; 84439; 84443; 85025; 87086

== ENCOUNTER 2024-10-12 13:00 | Outpatient (AMB) | payer OTHER, SELFPAY ==
[2024-10-12 14:25] VITALS: BMI 45.5
--- NOTE | 2024-10-12 14:25 | AM.OFFVISNUR ---
Vital Signs 10/12/24 14:25 Height 5 ft 1 in Weight 241 lb BMI 45.5 Intake Visit Reasons: DEPO Allergies Penicillins [PENICILLINS] Allergy (Intermediate, Verified 09/18/24 11:47) HIVES phenobarbital [PHENOBARBITAL] Allergy (Intermediate, Verified 09/18/24 11:47) HIVES Nursing Note Alyse is here today for her scheduled Depo-Provera INJ. She is c/o some depression , and not sure if its Post related or Depo-provera. Pt delivered 6 mos ago. control consult scheduled for Alyse, per her request, prior to her next inj. Office Procedures Depo Questionnaire If YES to any of the following questions, please consult a provider. Date of last injection: 07/20/24 Menstrual pattern since last injection has been: Not Applicable Irregular bleeding?: No Breast lumps or other breast changes?: No Changes in weight or appetite?: No Depression or changes in mood?: Yes Abnormal hair growth or loss?: No Skin problems (rash, acne, discoloration)?: No Pain at the injection site?: No Headaches?: No Nervousness?: No Abdominal pain or cramping?: No Dizziness or nausea?: No Fatigue or weakness?: No Decrease in sexual drive?: No Chest pain or shortness of breath?: No Swelling in arms or legs?: No Form completed by?: Diana Eduardo LPN Office Meds Depo-Provera 150 mg/mL intramuscular syringe Performing Provider: Vinay Lamar MD Performing Location[place] [facility] Administered by: Jalyn Eduardo LPN on 10/12/24 13:20 Dose Route Admin Location Dispensed Lot Number Expiration Date [facility] Knitting Machine Tender 150 mg IM rt deltoid 1 mL [id number] 11/25/25 80594-488-69 MYLAN Assessment & Plan Assessment & Plan Orders: Orders AMB Medroxyprogesterone Injection Patient Supplied Today Z30.9 - Encounter for contraceptive management, unspecified Medications: New Depo-Provera (medroxyprogesterone) 150 mg IM ONCE 1 mL 0RF NS Z30.9 - Encounter for contraceptive management, unspecified Coding Level of Care Code Established Pt Est Pt Level 1 (65332) Patient Type Established History Problem Focused Exam Problem Focused Medical Decision Making Straight Forward Time Spent (min) 20
--- OUTSIDE RECORDS SUMMARY | 2024-10-12 15:06 | XMS_ITS | Clinical Summary ---
Author Organization [facility] Address [address] [place] [address] Phone Care Team Providers Care Division Controller Name Role Phone Unavailable Primary Care Provider [...] complete this topic Procedures * Due to [place] [employer] law, this organization might not be sharing sensitive test results. Procedure Name Priority Date/Time Associated Diagnosis Comments CHLAMYDIA AND GONORRHEA, AMPLIFIED Routine 02/23/2015 2:08 PM EDT from Last 3 Months or Most Recently Relevant to Health Maintenance Results * Due to [place] [employer] law, this organization might not be sharing sensitive test results. * Chlamydia and Gonorrhoea, Amplified (02/23/2015 2:08 PM EDT) URINE GC AMP PROBE NEGATIVE [facility] Comment: No Neisseria Gonorrhoeae RNA detected in this patient's sample (REFERENCE RANGE/NORMAL VALUE: NOT DETECTED) NOTE: This test uses warehouse helper-mediated amplification method to detect rRNA from C.Trachomatis [...] without risk of sexual abuse. Consult the [facility] if needed. Contact phone number . Therapeutic failure or success cannot be determined with the Aptima Combo2 assay since nucleic acid may persist following appropriate antimicrobial therapy. The Centers for Disease Control and Prevention (CDC) recommends confirmatory retesting using culture or a different nucleic acid amplification test when positive results occur, if indicated. Testing performed or reported by [facility], a Service of [facility], [address] [place] [address] Otoniel Rutledge MD, PhD, Technology Specialist URINE CHLAMYDIA AMP PROBE NEGATIVE [facility] Comment: No Chlamydia Trachomatis RNA detected in this patient's sample (REFERENCE RANGE/NORMAL VALUE: NOT DETECTED) 02/23/2015 2:08 PM EDT [facility] - 02/23/2015 2:08 PM EDT URINE CHLAMYDIA GC AMP PROBE us Monica Francis MD LAB MICROBIOLOGY - GENERAL ORDER GREG Final Result [facility] [address] [place] [address], [place] from Last 3 Months or Most Recently Relevant to Health Maintenance
--- OUTSIDE RECORDS SUMMARY | 2024-10-12 15:06 | XMS_ITS | Encounter Summary ---
Author Organization [facility] Address [address] [place] [address] Phone Care Team Providers Care Coil Winder Hand Name Role Phone Monica Francis MD Primary Care Provider [phone] Encounter Details Date Type Department Care Team (Late st Contact Info) Description 03/20/[address] [facility] [place] Family Medicine [address] [place] [address] Family Medicine, Physician [address] [place], [place] [phone] Social History Tobacco Use Types Packs/Day Years [...] on filedocumented in this encounter Care Teams Coil Winder Hand Relationship Specialty Start Date End Date Monica Francis MD [address] [place] [address] [place] [address] PCP - General 03/08/17 01/27/23 documented as of this encounter
--- OUTSIDE RECORDS SUMMARY | 2024-10-12 15:06 | XMS_ITS | Encounter Summary ---
Author Organization [facility] Address [address] [place] [address] Phone Care Team Providers Care Card Setter Name Role Phone Monica Francis MD Primary Care Provider Encounter Details Date Type Department Care Team (Late st Contact Info) Description 01/25/2012 Documentation [facility] [place] [address] [place] [address] Family Medicine, Physician [address], [place] [phone] Social History Tobacco Use Types Packs/Day Years [...] on filedocumented in this encounter Care Teams Card Setter Relationship Specialty Start Date End Date Monica Francis MD [address] [place] [address] [place] [address] PCP - General 03/08/17 01/27/23 documented as of this encounter
--- OUTSIDE RECORDS SUMMARY | 2024-10-12 15:06 | XMS_ITS | Encounter Summary ---
Author Organization [facility] Address [address] [place] [address] Phone Care Team Providers Care Passport Support Manager Name Role Phone Monica Francis MD Primary Care Provider [phone] Encounter Details Date Type Department Care Team (Late st Contact Info) Description 09/30/2012 Documentation [facility] [place] Family Medicine [address] [place] [address] Family Medicine, Physician [address], [place] [phone] Social History Tobacco Use Types Packs/Day Years [...] on filedocumented in this encounter Care Teams Passport Support Manager Relationship Specialty Start Date End Date Monica Francis MD [address] [place] [address] [place] [address] PCP - General 03/08/17 01/27/23 documented as of this encounter
--- OUTSIDE RECORDS SUMMARY | 2024-10-12 15:06 | XMS_ITS | Encounter Summary ---
Author Organization [facility] Address [address] [place] [address] Phone Care Team Providers Care Cnc Technician Name Role Phone Monica Francis MD Primary Care Provider [phone] Encounter Details Date Type Department Care Team (Late st Contact Info) Description 03/14/2017 Conversion Encounter [facility] [address] [place] [address] Social History Tobacco Use Types Packs/Day Years [...] on filedocumented in this encounter Care Teams Cnc Technician Relationship Specialty Start Date End Date Monica Francis MD [address] [place] [address] PCP - General 03/08/17 01/27/23 documented as of this encounter
--- OUTSIDE RECORDS SUMMARY | 2024-10-12 15:06 | XMS_ITS | Encounter Summary ---
Author Organization [facility] Address [address] [place] [address] Phone Care Team Providers Care Director Of Health Education Name Role Phone Monica Francis MD Primary Care Provider [phone] Encounter Details Date Type Department Care Team (Late st Contact Info) Description 02/15/2014 Documentation [facility] [place] [address] [place] [address] Family Medicine, Physician [address] [place], [place] [phone] Social History Tobacco Use Types Packs/Day Years [...] in this encounter Care Teams Director Of Health Education Relationship Specialty Start Date End Date Monica Francis MD [address] [place] [address] [place] [address] PCP - General 03/08/17 01/27/23 documented as of this encounter
--- OUTSIDE RECORDS SUMMARY | 2024-10-12 15:06 | XMS_ITS | Encounter Summary ---
Author Organization [facility] Address [address] [place] [address] Phone Care Team Providers Care Naprapath Name Role Phone Monica Francis MD Primary Care Provider [phone] Encounter Details Date Type Department Care Team (Late st Contact Info) Description 07/31/2011 Documentation [facility] [place] Family Medicine [address] [place] [address] Family Medicine, Physician [address] [place], [place] [phone] Social History Tobacco Use Types Packs/Day Years [...] on filedocumented in this encounter Care Teams Naprapath Relationship Specialty Start Date End Date Monica Francis MD [address] [place] [address] [place] [address] PCP - General 03/08/17 01/27/23 documented as of this encounter
--- OUTSIDE RECORDS SUMMARY | 2024-10-12 15:06 | XMS_ITS | Encounter Summary ---
Author Organization [facility] Address [address] [place] [address] Phone Care Team Providers Care Building Construction Supervisor Name Role Phone Monica Francis MD Primary Care Provider [phone] Encounter Details Date Type Department Care Team (Late st Contact Info) Description 04/20/2016 [place]ation [facility] [place] [address] [place] [address] Family Medicine, Physician [address] [place] [address] Social History Tobacco Use Types Packs/Day Years [...] on filedocumented in this encounter Care Teams Building Construction Supervisor Relationship Specialty Start Date End Date Monica Francis MD [address] [place] [address] PCP - General 03/08/17 01/27/23 documented as of this encounter
--- OUTSIDE RECORDS SUMMARY | 2024-10-12 15:06 | XMS_ITS | Encounter Summary ---
Author Organization [facility] Address [address] [place] [address] Phone Care Team Providers Care Truck Repair Supervisor Name Role Phone Monica Francis MD Primary Care Provider [phone] Encounter Details Date Type Department Care Team (Late st Contact Info) Description 01/12/2010 Documentation [facility] [place] Family Medicine [address] [place] [address] Family Medicine, Physician [address], [place] [phone] Social History Tobacco Use Types Packs/Day Years [...] on filedocumented in this encounter Care Teams Truck Repair Supervisor Relationship Specialty Start Date End Date Monica Francis MD [address] [place] [address] [place] [address] PCP - General 03/08/17 01/27/23 documented as of this encounter
--- OUTSIDE RECORDS SUMMARY | 2024-10-12 15:06 | XMS_ITS | Encounter Summary ---
Author Organization [facility] Address [address] [place] [address] Phone Care Team Providers Care Paper Rewinder Operator Name Role Phone Monica Francis MD Primary Care Provider [phone] Encounter Details Date Type Department Care Team (Late st Contact Info) Description 08/31/2011 Documentation [facility] [place] [address] [place] [address] Family Medicine, Physician [address] [place] [phone] Social History Tobacco Use Types Packs/Day Years [...] on filedocumented in this encounter Care Teams Paper Rewinder Operator Relationship Specialty Start Date End Date Monica Francis MD [address] [place] [address] [place] [address] PCP - General 03/08/17 01/27/23 documented as of this encounter
--- OUTSIDE RECORDS SUMMARY | 2024-10-12 15:06 | XMS_ITS | Encounter Summary ---
Author Organization [facility] Address [address] [place] [address] Phone Care Team Providers Care Spice Grinder Name Role Phone Monica Francis MD Primary Care Provider [phone] Encounter Details Date Type Department Care Team (Late st Contact Info) Description 05/15/2010 [place] [facility] [place] [address] [place] [address] Family Medicine, Physician [address] [place], [place] [phone] Social History Tobacco Use Types Packs/Day Years [...] on filedocumented in this encounter Care Teams Spice Grinder Relationship Specialty Start Date End Date Monica Frnacis MD [address] [place] [address] [place] [address] PCP - General 03/08/17 01/27/23 documented as of this encounter
== END 2024-10-12 13:20 | disposition home or self-care (01) ==
LOC: HO.HWS 13:00
PROVIDERS: PCP Internal Medicine; Visit Provider Obstetrics & Gynecology
DX: Z30.9 Encounter for contraceptive management, unspecified (principal)

== ENCOUNTER → 2024-10-12 13:00 | Outpatient (BNVA) | payer OTHER, SELFPAY | PROVIDERS: PCP Internal Medicine; Visit Provider Obstetrics & Gynecology | DX: Z30.42 Encounter for surveillance of injectable contraceptive (principal) | CPT/HCPCS: 96372; 99211; J1050 ==

== ENCOUNTER 2024-12-09 08:52 | Outpatient (AMB) | payer OTHER, SELFPAY ==
--- NOTE | 2024-12-09 09:12 | MHC.OFFVIS ---
Vital Signs 12/09/24 09:19 Height 5 ft 1 in Weight 244 lb BMI 46.1 BP 114/70 Intake Visit Reasons: Depo consult Head Sawyer Required: No Information Interpreted: non-clinical & clinical Accompanied by: Self / Same As Patient Allergies Penicillins [PENICILLINS] Allergy (Intermediate, Verified 12/09/24 09:19) HIVES phenobarbital [PHENOBARBITAL] Allergy (Intermediate, Verified 12/09/24 09:19) HIVES HPI Comments Details: Presenting to discuss different options of control. The patient has been on Depo-Provera or last 7 months since last delivery last shot was on 10/12, is experiencing depression symptoms and irritability with anxiety [facility] Medical History Obesity Hearing deficit Morbid obesity with BMI of 40.0-44.9, adult Hidradenitis suppurativa Surgical History History of ear surgery History of tonsillectomy and adenoidectomy Family History Father Pacemaker Stroke Asthma Hypertension Mother Hypertension Asthma Chronic mental illness Anxiety and depression Paternal Aunt Pancreatic cancer Social History Housing: House Alcohol intake: current Alcohol intake frequency: holidays/special occasions only Comment: once a month 1-2 drinks Patient Tobacco Use Status: Never used Tobacco Tobacco use type: Cigarette Years Smoked: edible e-Cigarette/Vaping Use: Never Used Second Hand Smoke Exposure: No Current occupational status: employed Current occupation: Mental health counselor Sexual orientation: Straight/Heterosexual Gender identity: Female Cognitive needs: No Hearing needs: No Vision needs: No Female Reproductive History Menstrual Age of Menarche: 9 Review of Systems Const All systems reviewed & are unremarkable except as noted in HPI and below Reports as per HPI and Reports no additional complaints GI Reports no additional complaints Reports no additional complaints Physical Exam Vital Signs: Last Vital Signs BP 114/70 12/09/24 09:19 BMI result Body Mass Index 46.1 Assessment & Plan Assessment & Plan (1) Family planning: Code(s): Z30.09 - Encounter for other general counseling and advice on contraception Category: Social Hx Plan: Discussed with the patient the different options of control including control pills/Nuvaring, Depo Medroxy Progesterone Acetate, IUD ( levonorgestrel, Copper), sterilization and vasectomy. All the pros, cons, risks and benefits of each were discussed with the patient. The patient decided to discussed vasectomy with her partner meanwhile will stay on Depo-Provera to further notice. Instructions given the patient to call if symptoms get worse and schedule next Depo-Provera appointment no later than 12 weeks from last shot Depo-Provera (12/28 to 01/11 ). All questions answered, the patient verbalized understanding Coding Level of Care Code Est Pt Level 3 (91266) Diagnoses Family planning Z30.09
--- OUTSIDE RECORDS SUMMARY | 2024-12-09 09:17 | XMS_ITS | Encounter Summary ---
Author Organization [facility] Address [address] [place] [address] Phone Care Team Providers Care Hoop Maker Machine Name Role Phone Monica Francis MD Primary Care Provider [phone] Encounter Details Date Type Department Care Team (Late st Contact Info) Description 03/20/2013 [place] [facility] [place] [address] [place] [address] Family Medicine, Physician [address] [place] [phone] Social History Tobacco Use Types Packs/Day Years [...] on filedocumented in this encounter Care Teams Hoop Maker Machine Relationship Specialty Start Date End Date Monica Francis MD [address] [place] [address] [place] [address] PCP - General 03/08/17 01/27/23 documented as of this encounter
--- OUTSIDE RECORDS SUMMARY | 2024-12-09 09:17 | XMS_ITS | Encounter Summary ---
Author Organization [facility] Address [address] [place] [address] Phone Care Team Providers Care Lithographer Apprentice Name Role Phone Monica Francis MD Primary Care Provider [phone] Encounter Details Date Type Department Care Team (Late st Contact Info) Description 09/30/2012 Documentation [facility] [place] Family Medicine [address] [place] [address] Family Medicine, Physician [address] [place], [place] [phone] Social History Tobacco Use Types Packs/Day Years [...] on filedocumented in this encounter Care Teams Lithographer Apprentice Relationship Specialty Start Date End Date Monica Francis MD [address] [place] [address] [place] [address] PCP - General 03/08/17 01/27/23 documented as of this encounter
--- OUTSIDE RECORDS SUMMARY | 2024-12-09 09:17 | XMS_ITS | Encounter Summary ---
Author Organization [facility] Address [address] [place] [address] Phone Care Team Providers Care Cdc Associate Name Role Phone Monica Francis MD Primary Care Provider [phone] Encounter Details Date Type Department Care Team (Late st Contact Info) Description 07/31/2011 Documentation [facility] [place] [address] [place] [address] Family Medicine, Physician [address] [place] [phone] Social History Tobacco Use Types Packs/Day Years [...] on filedocumented in this encounter Care Teams Cdc Associate Relationship Specialty Start Date End Date Monica Francis MD [address] [place] [address] [place] [address] PCP - General 03/08/17 01/27/23 documented as of this encounter
--- OUTSIDE RECORDS SUMMARY | 2024-12-09 09:17 | XMS_ITS | Encounter Summary ---
Author Organization [facility] Address [address] [place] [address] Phone Care Team Providers Care Talent Acquisition Associate Name Role Phone Monica Francis MD Primary Care Provider [phone] Encounter Details Date Type Department Care Team (Late st Contact Info) Description 01/25/2012 [place] [facility] [place] [address] [place] [address] Family Medicine, Physician [address] [place] [phone] Social History Tobacco Use Types Packs/Day Years [...] on filedocumented in this encounter Care Teams Talent Acquisition Associate Relationship Specialty Start Date End Date Monica Francis MD [address] [place] [address] [place] [address] PCP - General 03/08/17 01/27/23 documented as of this encounter
--- OUTSIDE RECORDS SUMMARY | 2024-12-09 09:17 | XMS_ITS | Encounter Summary ---
Author Organization [facility] Address [address] [place] [address] Phone Care Team Providers Care Food And Beverage Associate Name Role Phone Monica Francis MD Primary Care Provider [phone] Encounter Details Date Type Department Care Team (Late st Contact Info) Description 04/20/2016 Documentation [facility] [place] [address] [place] [address] Family Medicine, Physician [address] [place] [address] Social History Tobacco Use Types Packs/Day Years [...] on filedocumented in this encounter Care Teams Food And Beverage Associate Relationship Specialty Start Date End Date Monica Francis MD [address] [place] [address] PCP - General 03/08/17 01/27/23 documented as of this encounter
--- OUTSIDE RECORDS SUMMARY | 2024-12-09 09:17 | XMS_ITS | Encounter Summary ---
Author Organization [facility] Address [address] [place] [address] Phone Care Team Providers Care Electromechanical Assembly Technician Name Role Phone Monica Francis MD Primary Care Provider [phone] Encounter Details Date Type Department Care Team (Late st Contact Info) Description 08/31/2011 [place] [facility] [place] [address] [place] [address] Family Medicine, Physician [address] [place] [phone] Social History Tobacco Use Types Packs/Day Years [...] on filedocumented in this encounter Care Teams Electromechanical Assembly Technician Relationship Specialty Start Date End Date Monica Francis MD [address] [place] [address] [place] [address] PCP - General 03/08/17 01/27/23 documented as of this encounter
--- OUTSIDE RECORDS SUMMARY | 2024-12-09 09:17 | XMS_ITS | Encounter Summary ---
Author Organization [facility] Address [address] [place] [address] Phone Care Team Providers Care Cinder Snapper Name Role Phone Monica Francis MD Primary Care Provider [phone] Encounter Details Date Type Department Care Team (Late st Contact Info) Description 03/14/2017 Conversion Encounter [facility] [address] [place] [address] Social History Tobacco Use Types Packs/Day Years [...] on filedocumented in this encounter Care Teams Cinder Snapper Relationship Specialty Start Date End Date Monica Francis MD [address] [place] [address] PCP - General 03/08/17 01/27/23 documented as of this encounter
--- OUTSIDE RECORDS SUMMARY | 2024-12-09 09:17 | XMS_ITS | Encounter Summary ---
Author Organization [facility] Address [address] [place] [address] Phone Care Team Providers Care Mail Agent Name Role Phone Monica Francis MD Primary Care Provider [phone] Encounter Details Date Type Department Care Team (Late st Contact Info) Description 02/15/2014 Documentation [facility] [place] [address] [place] [address] Family Medicine, Physician [address] [place] [phone] Social History Tobacco Use Types Packs/Day Years [...] on filedocumented in this encounter Care Teams Mail Agent Relationship Specialty Start Date End Date Monica Francis MD [address] [place] [address] [place] [address] PCP - General 03/08/17 01/27/23 documented as of this encounter
--- OUTSIDE RECORDS SUMMARY | 2024-12-09 09:17 | XMS_ITS | Encounter Summary ---
Author Organization [facility] Address [address] [place] [address] Phone Care Team Providers Care Phonograph Cartridge Assembler Name Role Phone Monica Francis MD Primary Care Provider [phone] Encounter Details Date Type Department Care Team (Late st Contact Info) Description 01/12/[address] [facility] [place] [address] [place] [address] Family Medicine, Physician [address] [place] [phone] Social History Tobacco Use Types Packs/Day Years [...] on filedocumented in this encounter Care Teams Phonograph Cartridge Assembler Relationship Specialty Start Date End Date Monica Francis MD [address] [place] [address] [place] [address] PCP - General 03/08/17 01/27/23 documented as of this encounter
--- OUTSIDE RECORDS SUMMARY | 2024-12-09 09:17 | XMS_ITS | Encounter Summary ---
Author Organization [facility] Address [address] [place] [address] Phone Care Team Providers Care Modern And Contemporary Art Curator Name Role Phone Monica Francis MD Primary Care Provider [phone] Encounter Details Date Type Department Care Team (Late st Contact Info) Description 05/15/2010 [place] [facility] [place] [address] [place] [address] Family Medicine, Physician [address] [place] [phone] Social History Tobacco Use Types Packs/Day Years [...] on filedocumented in this encounter Care Teams Modern And Contemporary Art Curator Relationship Specialty Start Date End Date Monica Francis MD [address] [place] [address] [place] [address] PCP - General 03/08/17 01/27/23 documented as of this encounter
--- OUTSIDE RECORDS SUMMARY | 2024-12-09 09:17 | XMS_ITS | Clinical Summary ---
Author Organization [facility] Address [address] [place] [address] Phone Care Team Providers Care Back Tufter Name Role Phone Unavailable Primary Care Provider [...] complete this topic Procedures * Due to [place] [employer] law, this organization might not be sharing sensitive test results. Procedure Name Priority Date/Time Associated Diagnosis Comments CHLAMYDIA AND GONORRHEA, AMPLIFIED Routine 02/23/2015 2:08 PM EDT from Last 3 Months or Most Recently Relevant to Health Maintenance Results * Due to [place] [employer] law, this organization might not be sharing sensitive test results. * Chlamydia and Gonorrhoea, Amplified (02/23/2015 2:08 PM EDT) URINE GC AMP PROBE NEGATIVE [facility] Comment: No Neisseria Gonorrhoeae RNA detected in this patient's sample (REFERENCE RANGE/NORMAL VALUE: NOT DETECTED) NOTE: This test uses production assembly supervisor-mediated amplification method to detect rRNA from C.Trachomatis [...] without risk of sexual abuse. Consult the [facility] if needed. Contact phone number . Therapeutic failure or success cannot be determined with the Aptima Combo2 assay since nucleic acid may persist following appropriate antimicrobial therapy. The Centers for Disease Control and Prevention (CDC) recommends confirmatory retesting using culture or a different nucleic acid amplification test when positive results occur, if indicated. Testing performed or reported by [facility], a Service of [facility], [address] [place] [address] Otoniel Rutledge MD, PhD, Central Processing Technician URINE CHLAMYDIA AMP PROBE NEGATIVE [facility] Comment: No Chlamydia Trachomatis RNA detected in this patient's sample (REFERENCE RANGE/NORMAL VALUE: NOT DETECTED) 02/23/2015 2:08 PM EDT [facility] - 02/23/2015 2:08 PM EDT URINE CHLAMYDIA GC AMP PROBE us Monica Francis MD LAB MICROBIOLOGY - GENERAL ORDER GREG Final Result [facility] [address] [place] [address], [place] from Last 3 Months or Most Recently Relevant to Health Maintenance
[2024-12-09 09:19] VITALS: BP 114/70; BMI 46.1
== END 2024-12-09 10:00 | disposition home or self-care (01) ==
LOC: HO.HWS 08:53
PROVIDERS: PCP Internal Medicine; Visit Provider Obstetrics & Gynecology
DX: Z30.09 Encounter for other general counseling and advice on contraception (principal); Z32.02 Encounter for pregnancy test, result negative
CPT/HCPCS: 99213

== ENCOUNTER → 2024-12-09 08:52 | Outpatient (BNVA) | payer OTHER, SELFPAY | PROVIDERS: PCP Internal Medicine; Visit Provider Obstetrics & Gynecology | DX: Z30.09 Encounter for other general counseling and advice on contraception (principal) | CPT/HCPCS: 81025; 99212 ==

== ENCOUNTER 2024-12-30 12:55 | Outpatient (AMB) | payer OTHER, SELFPAY ==
--- OUTSIDE RECORDS SUMMARY | 2024-12-30 13:17 | XMS_ITS | Encounter Summary ---
Author Organization [facility] Address [address] [place] [address] Phone Care Team Providers Care Pharmacoepidemiologist Name Role Phone Monica Francis MD Primary Care Provider [phone] Encounter Details Date Type Department Care Team (Late st Contact Info) Description 02/15/2014 Documentation [facility] [place] [address] [place] [address] Family Medicine, Physician [address] [place], [place] [phone] Social History Tobacco Use Types Packs/Day Years [...] on filedocumented in this encounter Care Teams Pharmacoepidemiologist Relationship Specialty Start Date End Date Monica Francis MD [address] [place] [address] [place] [address] PCP - General 03/08/17 01/27/23 documented as of this encounter
[2024-12-30 13:20] VITALS: BMI 45.9
--- NOTE | 2024-12-30 13:20 | AM.OFFVISNUR ---
Vital Signs 12/30/24 13:20 Height 5 ft 1 in Weight 243 lb BMI 45.9 Intake Visit Reasons: depo Allergies Penicillins [PENICILLINS] Allergy (Intermediate, Verified 12/09/24 09:19) HIVES phenobarbital [PHENOBARBITAL] Allergy (Intermediate, Verified 12/09/24 09:19) HIVES Medication List - Last Reconciled 12/30/24 by Yeni Oneil LPN acetaminophen 1,000 mg (2 x 500 mg) PO Q6H PRN blood sugar diagnostic (FreeStyle Lite Strips) As directed blood-glucose meter (FreeStyle Lite Meter kit) As directed fexofenadine (Yelitza Hives) 180 mg PO DAILY fluticasone propionate 50 mcg/actuation 2 sprays intranasal DAILY lancets (FreeStyle Lancets) As directed nitrofurantoin monohyd/m-cryst 100 mg (Macrobid) 100 mg PO Q12H 7 days omeprazole 20 mg PO DAILY pen needle, diabetic (BD Ultra-Fine Mini Pen Needle) As directed Nursing Note Patient here for her Depo Provera Injection. Injection given in left Deltoid without complaints. Next injection due in 12 weeks. Office Procedures Depo Questionnaire If YES to any of the following questions, please consult a provider. Date of last injection: 10/12/24 Date of last gynecology exam: 06/01/24 Menstrual pattern since last injection has been: Light Irregular bleeding?: Yes Breast lumps or other breast changes?: No Changes in weight or appetite?: No Depression or changes in mood?: No Abnormal hair growth or loss?: No Skin problems (rash, acne, discoloration)?: No Pain at the injection site?: No Headaches?: No Nervousness?: No Abdominal pain or cramping?: No Dizziness or nausea?: No Fatigue or weakness?: No Decrease in sexual drive?: No Chest pain or shortness of breath?: No Swelling in arms or legs?: No Form completed by?: Yeni Oneil LPN Office Meds Depo-Provera 150 mg/mL intramuscular syringe Performing Provider: Vinay Lamar MD Performing Location: [facility] [place] [facility] Administered by: Yeni Oneil LPN on 12/30/24 13:30 Dose Route Admin Location Dispensed Lot Number Expiration Date [facility] Chief Revenue Officer 150 mg IM Left deltoid 1 mL [id number] 10/30/25 19384-388-00 MYLAN Assessment & Plan Assessment & Plan Orders: Orders AMB Medroxyprogesterone Injection Patient Supplied Today Z30.42 - Encounter for surveillance of injectable contraceptive Coding Level of Care Code Established Pt Est Pt Level 1 (48964) Patient Type Established History Problem Focused Exam Problem Focused Medical Decision Making Straight Forward Time Spent (min) 20
== END 2024-12-30 13:15 | disposition home or self-care (01) ==
LOC: HO.HWS 12:55
PROVIDERS: PCP Internal Medicine; Visit Provider Obstetrics & Gynecology
DX: Z30.42 Encounter for surveillance of injectable contraceptive (principal)

== ENCOUNTER → 2024-12-30 12:55 | Outpatient (BNVA) | payer OTHER, SELFPAY | PROVIDERS: PCP Internal Medicine; Visit Provider Obstetrics & Gynecology | DX: Z30.42 Encounter for surveillance of injectable contraceptive (principal) | CPT/HCPCS: 96372; 99211; J1050 ==

== ENCOUNTER 2024-12-31 09:11 | Outpatient (AMB) | payer OTHER, SELFPAY ==
[2024-12-31 09:17] VITALS: BP 100/70; PULSE 113; O2SAT 96; BMI 45.4
--- NOTE | 2024-12-31 09:17 | A.OFFPC_ITS ---
Vital Signs 12/31/24 09:17 Height 5 ft 1 in Weight 240 lb 6 oz BMI 45.4 BP 100/70 Blood Pressure Location Lt brachial Position Sitting Pulse 113 H Pulse Source Pulse Oximeter Pulse Oximetry (%) 96 Oxygen Delivery Method Room Air Intake Visit Reasons: 3 Month F/U Top Stop Attacher Required: No Accompanied by: Self / Same As Patient Allergies Penicillins [PENICILLINS] Allergy (Intermediate, Verified 12/31/24 09:17) HIVES phenobarbital [PHENOBARBITAL] Allergy (Intermediate, Verified 12/31/24 09:17) HIVES Medication List - Last Reconciled 12/31/24 by Silvestre Batista MD acetaminophen 1,000 mg (2 x 500 mg) PO Q6H PRN blood sugar diagnostic (FreeStyle Lite Strips) As directed blood-glucose meter (FreeStyle Lite Meter kit) As directed fexofenadine (Yelitza Hives) 180 mg PO DAILY fluticasone propionate 50 mcg/actuation 2 sprays intranasal DAILY lancets (Standardized SafetyStyle Lancets) As directed omeprazole 20 mg PO DAILY pen needle, diabetic (BD Ultra-Fine Mini Pen Needle) As directed Tobacco use date assessed: 12/31/24 Dental Screening Dental Screen Date: 12/31/24 Did you have a dental visit in the last 12 months?: Yes Did you have a dental problem in the last 6 months where you did not have access to dental care?: No Was dental information given to patient?: Patient has dentist [facility] Medical History (Updated 12/31/24 @ 09:34 by Silvestre Batista MD) Encounter for management and injection of depo-Provera Family planning Contraceptive management Hordeolum externum left upper eyelid IUD strings lost Otitis media of right ear with 6 completed weeks gestation Sprain of right knee Hearing deficit Otitis externa Otitis media Allergy Hidradenitis suppurativa Obesity Hearing deficit Morbid obesity with BMI of 40.0-44.9, adult Surgical History History of ear surgery History of tonsillectomy and adenoidectomy Family History Father Pacemaker Stroke Asthma Hypertension Mother Hypertension Asthma Chronic mental illness Anxiety and depression Paternal Aunt Pancreatic cancer Social History Housing: House Alcohol intake: current Alcohol intake frequency: holidays/special occasions only Comment: once a month 1-2 drinks Patient Tobacco Use Status: Never used Tobacco Tobacco use type: Cigarette Years Smoked: edible e-Cigarette/Vaping Use: Never Used Second Hand Smoke Exposure: No Current occupational status: employed Current occupation: Mental health counselor Sexual orientation: Straight/Heterosexual Gender identity: Female Cognitive needs: No Hearing needs: No Vision needs: No Female Reproductive History Menstrual Age of Menarche: 9 Questionnaire PHQ-9 Over the last 2 weeks, how often have you been bothered by any of the following problems? 1. Little interest or pleasure in doing things: several days 2. Feeling down, depressed, or hopeless: several days 3. Trouble falling or staying asleep, or sleeping too much: not at all 4. Feeling tired or having little energy: several days 5. Poor appetite or overeating: not at all 6. Feeling bad about yourself - or that you are a failure or have let yourself or your family down: several days 7. Trouble concentrating on things, such as reading the newspaper or watching television: several days 8. Moving or speaking so slowly that other people could have noticed. Or the opposite - being so fidgety or restless that you have been moving around a lot more than usual: not at all 9. Thoughts that you would be better off or of hurting yourself in some way: not at all Total score: 5 Depression Screening Interpretation: Positive Depression Screening Done: Yes 12993 - PHQ-9 Billing: Yes Source: Developed by Drs. Nick Gautam, Tiny Espana, Ayaan Aaron and colleagues, with an educational juan from [employer]. Thrive Questionnaire Date Thrive assessed: 12/31/24 I am a: Patient What is your living situation today?: I have a steady place to live Within the past 12 months, did the food you bought not last and you didn't have the money to get more?: Never true Within the past 12 months, did you worry whether your food would run out before you got money to buy more?: Never true Do you have trouble paying for medicines?: Yes Do you have trouble getting transportation to medical appointments?: No Do you have trouble paying your heating and electricity bill?: No Do you have trouble taking care of your child, family member or friend?: No Do you have trouble with day-to-day activities such as bathing, preparing meals, shopping, managing finances, etc.?: No Are you currently unemployed and looking for a job?: Yes Are you interested in more education?: Yes Please select the resources that you would like help with: None Currently or been in a relationship where the following occur: No concerns reported THRIVE Score: 0 AUDIT C Alcohol Use Questionnaire (AUDIT-C) 1. How often do you have a drink containing alcohol?: Monthly or less 2. How many drinks containing alcohol do you have on a typical day when you are drinking?: 1 or 2 3. How often do you have six or more drinks on one occasion?: Never Total Score: 1 ARABELLA-7 AMB Questionnaire ARABELLA-7 Date ARABELLA - 7 assessed: 12/31/24 Feeling nervous, anxious, or on edge: 3 = Nearly every day Not being able to stop or control worryin = Nearly every day Worrying too much about different things: 3 = Nearly every day Trouble relaxin = More than half the days Being so restless that it is hard to sit still: 0 = Not at all Becoming easily annoyed or irritable: 3 = Nearly every day Feeling afraid as if something awful might happen: 0 = Not at all Total ARABELLA-7 score (0-4 normal; 5-9 mild; 10-14 moderate; 15-21 severe): 14 Source: Developed by Drs. Nick Gautam, Tiny Espana, Ayaan Aaron and colleagues, with an educational juan from [employer]. ARABELLA-7 Assessment Billing ARABELLA-7 Assessment Tool: ARABELLA-7 Assessment 11842 Physical exam (Primary Care) Vital Signs: Oxygen Delivery Method Room Air 12/31/24 09:17 BMI result Body Mass Index 45.4 Tobacco/Smoking Status: Tobacco use Status Tobacco use date assessed 12/31/24 12/31/24 09:20 Patient Tobacco Use Status Never used Tobacco 12/31/24 09:20 Tobacco use type Cigarette 12/31/24 09:20 e-Cigarette/Vaping Use Never Used 12/31/24 09:20 PHQ-9: PHQ-9 Score PHQ-9: Total score 5 12/31/24 09:20 Depression Screening Interpretation: Positive Thrive Assessment: Date of Thrive Assessment Date Thrive assessed 12/31/24 12/31/24 09:20 Currently or been in a relationship where the following occur: No concerns reported Const General: alert; No acute distress Eyes Conjunctivae: conjunctivae normal Resp Auscultation: clear to auscultation bilaterally Cardio Rate: regular rate Rhythm: regular rhythm GI Inspection: Yes normal to inspection Extrem General: Yes normal to inspection and No edema Coding Level of Care Code Est Pt Level 4 (35598) Diagnoses Impaired glucose tolerance R73.02 GERD (gastroesophageal reflux disease) K21.9 Reactive airway disease J45.909 Generalized anxiety disorder F41.1 Additional Codes ARABELLA-7 Assessment Billing - ARABELLA-7 Assessment Tool: ARABELLA-7 Assessment 22765 ([id number]) PHQ-9 - 06660 - PHQ-9 Billing: Yes ([id number]) Assessment & Plan Assessment & Plan (1) Impaired glucose tolerance: Code(s): R73.02 - Impaired glucose tolerance (oral) Category: Medical Plan: Decrease the amount of carbohydrate intake, pasta, bread, rice and potatoes are all sugar and that is aside from all the sweet stuff, remember that fruits are good but they are Sweet also. Discussed about being more active (2) GERD (gastroesophageal reflux disease): Code(s): K21.9 - Gastro-esophageal reflux disease without esophagitis Category: Medical Plan: Avoid the foods that causes that usually spicy foods, tomato products, juices, coffee, soda and foods that your sensitive to. After eating do not lie down, allow 3-4 hours before in lie down. And keep the head of bed above 30 degrees to avoid the acid from going up. (3) Reactive airway disease: Code(s): J45.909 - Unspecified asthma, uncomplicated Category: Medical Plan: Stable (4) Generalized anxiety disorder: Comment: [facility] Code(s): F41.1 - Generalized anxiety disorder Category: Medical Plan: Patient has started Telehealth counseling. Discussed about going outside more Plan History of Present Illness The patient is a 29-year-old female presenting with concerns of impaired glucose tolerance following recent laboratory findings. Her history includes obesity, GERD, reactive airway disease, anxiety disorder, low vitamin D levels, and low normal vitamin B12 levels. Recent lab work indicated a fasting blood sugar of 102 mg/dL and a hemoglobin A1c of 5.8%, suggesting elevated levels that do not yet meet the criteria for diabetes. Her father has a history of diabetes, and she is motivated to prevent the progression of her glucose intolerance. Additionally, she experiences GERD, managed with Pepcid taken occasionally, and allergic rhinitis treated with Zyrtec and fluticasone. Her LDL cholesterol is well-controlled at 66 mg/dL, and other metabolic and organ function markers are normal. She shows a proactive stance towards incorporating lifestyle modifications to manage her conditions effectively. Health Maintenance - Reviewed patient's vitamin D levels, recommending supplementation due to low levels (26 ng/mL). - Discussed importance of maintaining a balanced diet low in processed carbohydrates and high in fiber to manage glucose levels. - Advised regular physical activity as weather improves to aid in weight management. Social History - Reports difficulty in balancing self-care with family responsibilities, impacting physical activity levels. - Motivated to become more active especially as weather improves. - Reports dietary habits conducive to GERD management, such as avoiding red sauces in the evenings. Review of Systems - Constitutional: Reports no significant weight changes, actively trying to lose weight. - Endocrine: Reports concern about glucose levels. - Gastrointestinal: Reports occasional heartburn triggered by specific foods. - Respiratory: Denies use of allergy medications causing unwanted drowsiness during the day. - Musculoskeletal: Reports previous knee joint concerns but no acute symptoms. Physical Exam Results - Labs: Fasting blood sugar at 102 mg/dL, hemoglobin A1c at 5.8% - Cholesterol panel: LDL 66 mg/dL - Vitamin D level: 26 ng/mL, vitamin B12 within normal range - Previous urine test noted white blood cells - Imaging: Past knee X-rays showing minimal degenerative changes Plan The focus will be on sustaining the current effective management of GERD with dietary modifications and medications, and monitoring glucose levels to prevent the progression of impaired glucose tolerance to diabetes. Vitamin D deficiency will be addressed with supplementation, and lifestyle changes including increased physical activity are recommended to support overall health. Regular follow-ups will help in monitoring progress and making necessary adjustments. Patient was informed and verbally consented to the use of an ambient scribe for clinic note documentation during this visit. Discussion Notes We discussed the importance of monitoring glucose levels and the roles of both diet and exercise in managing impaired glucose tolerance. I clarified the lab results and provided insight into the implications of her current levels without immediately prescribing medication. We also reviewed allergy management and vitamin D supplementation needs. We emphasized the significance of lifestyle adjustments, consents regarding the necessity for regular bloodwork every six months were discussed, and future health risks assessed. The patient understands the need for continued monitoring and agreed with the proposed dietary and lifestyle interventions. Patient Instructions - Continue taking Pepcid for heartburn as needed, and seek caution with trigger foods. - Increase physical activity as the weather improves and aim for consistent exercise routines. - Monitor dietary intake, focusing on reducing processed carbs like pasta and bread. - Take vitamin D supplements as recommended due to deficiency. - Schedule follow-up for blood sugar testing in six months. - Stay alert to any new symptoms, and report them promptly. Orders: Orders Vitamin D 25-OH Total 6 Months R73.02 - Impaired glucose tolerance (oral) Hemoglobin A1c 6 Months R73.02 - Impaired glucose tolerance (oral) Complete Blood Count Auto Diff 6 Months R73.02 - Impaired glucose tolerance (oral) Comprehensive Met. Panel 6 Months R73.02 - Impaired glucose tolerance (oral) Medications: New cetirizine (Zyrtec) 10 mg PO DAILY PRN 30 caps 0RF allergy symptoms famotidine (Pepcid) 20 mg PO BEDTIME 30 tabs 0RF Discontinued omeprazole Discontinued Reason: Doctor's Order 20 mg PO DAILY 30 caps 0RF K21.9 - Gastro-esophageal reflux disease without esophagitis nitrofurantoin monohyd/m-cryst 100 mg (Macrobid) must administer with a meal/food Discontinued Reason: Patient Completed Course 100 mg PO Q12H 7 days 14 caps 0RF
--- OUTSIDE RECORDS SUMMARY | 2024-12-31 09:54 | XMS_ITS | Encounter Summary ---
Author Organization [facility] Address [address] [place] [address] Phone Care Team Providers Care Master Control Supervisor Name Role Phone Monica Francis MD Primary Care Provider [phone] Encounter Details Date Type Department Care Team (Late st Contact Info) Description 02/15/2014 Documentation [facility] [place] Family Medicine [address] [place] [address] Family Medicine, Physician [address], [place] [phone] Social History Tobacco Use Types Packs/Day Years [...] on filedocumented in this encounter Care Teams Master Control Supervisor Relationship Specialty Start Date End Date Monica Francis MD [address] [place] [address] [place] [address] PCP - General 03/08/17 01/27/23 documented as of this encounter
== END 2024-12-31 09:40 | disposition home or self-care (01) ==
LOC: HO.HMCH 09:12
PROVIDERS: PCP Internal Medicine; Visit Provider Internal Medicine
DX: R73.02 Impaired glucose tolerance (oral) (principal); K21.9 Gastro-esophageal reflux disease without esophagitis; J45.909 Unspecified asthma, uncomplicated; F41.1 Generalized anxiety disorder

== ENCOUNTER → 2024-12-31 09:11 | Outpatient (BNVA) | payer OTHER, SELFPAY | PROVIDERS: PCP Internal Medicine; Visit Provider Internal Medicine | DX: K21.9 Gastro-esophageal reflux disease without esophagitis (principal); R73.02 Impaired glucose tolerance (oral); J45.909 Unspecified asthma, uncomplicated; F41.1 Generalized anxiety disorder | CPT/HCPCS: 96127; 99212 ==

== ENCOUNTER 2025-05-10 11:04 | Outpatient (AMB) | payer OTHER, SELFPAY ==
--- OUTSIDE RECORDS SUMMARY | 2025-05-10 11:05 | XMS_ITS | Encounter Summary ---
Author Organization [facility] Address [address] [place] [address] Phone Care Team Providers Care Sap Bi Architect Name Role Phone Monica Francis MD Primary Care Provider [phone] Encounter Details Date Type Department Care Team (Late st Contact Info) Description 03/20/2013 Documentation [facility] [place] Family Medicine [address] [place] [address] Family Medicine, Physician [address] [place] [phone] Social History Tobacco Use Types Packs/Day Years [...] on filedocumented in this encounter Care Teams Sap Bi Architect Relationship Specialty Start Date End Date Monica Francis MD [address] [place] [address] [place] [address] PCP - General 03/08/17 01/27/23 documented as of this encounter
--- OUTSIDE RECORDS SUMMARY | 2025-05-10 11:05 | XMS_ITS | Encounter Summary ---
Author Organization [facility] Address [address] [place] [address] Phone Care Team Providers Care Public Address System Operator Name Role Phone Monica Francis MD Primary Care Provider Encounter Details Date Type Department Care Team (Late st Contact Info) Description 04/20/2016 Documentation [facility] [place] Family Medicine [address] [place] [address] Family Medicine, Physician [address] [place] [address] Social History Tobacco Use Types Packs/Day Years [...] on filedocumented in this encounter Care Teams Public Address System Operator Relationship Specialty Start Date End Date Monica Francis MD [address] [place] [address] PCP - General 03/08/17 01/27/23 documented as of this encounter
--- OUTSIDE RECORDS SUMMARY | 2025-05-10 11:05 | XMS_ITS | Encounter Summary ---
Author Organization [facility] Address [address] [place] [address] Phone Care Team Providers Care Band Lining Bander Name Role Phone Monica Francis MD Primary Care Provider [phone] Encounter Details Date Type Department Care Team (Late st Contact Info) Description 03/14/2017 Conversion Encounter [facility] [address] [place] [address] Social History Tobacco Use Types Packs/Day Years [...] on filedocumented in this encounter Care Teams Band Lining Bander Relationship Specialty Start Date End Date Monica Francis MD [address] [place] [address] PCP - General 03/08/17 01/27/23 documented as of this encounter
--- OUTSIDE RECORDS SUMMARY | 2025-05-10 11:05 | XMS_ITS | Encounter Summary ---
Author Organization [facility] Address [address] [place] [address] Phone Care Team Providers Care Footwear Production Machine Operator Name Role Phone Monica Francis MD Primary Care Provider [phone] Encounter Details Date Type Department Care Team (Late st Contact Info) Description 01/12/2010 [place] [facility] [place] [address] [place] [address] Family Medicine, Physician [address] [place] [phone] Social History Tobacco Use Types Packs/Day Years [...] on filedocumented in this encounter Care Teams Footwear Production Machine Operator Relationship Specialty Start Date End Date Monica Francis MD [address] [place] [address] [place] [address] PCP - General 03/08/17 01/27/23 documented as of this encounter
--- OUTSIDE RECORDS SUMMARY | 2025-05-10 11:05 | XMS_ITS | Clinical Summary ---
Author Organization [facility] Address [address] [place] [address] Phone Care Team Providers Care Filter Washer Name Role Phone Unavailable Primary Care Provider [...] 95 08/03/2014 12:00 AM EST Temperature 36.7 C (98 F) 08/03/2014 12:00 AM EST Respiratory Rate - - Oxygen [...] 12/18/1995, Additional history exists Influenza Vaccines (#1) 2025 06/12/20 13, 09/20/2011, 04/05/2010, Additional history exists COVID-19 Vaccine (2024- season) 2025 HIB Vaccines Completed 11/04/1995, 11/26, 1994, Additional [...] complete this topic Procedures * Due to [place] [employer] law, this organization might not be sharing sensitive test results. Procedure Name Priority Date/Time Associated Diagnosis Comments CHLAMYDIA AND GONORRHEA, AMPLIFIED Routine 02/23/2015 2:08 PM EDT from Last 3 Months or Most Recently Relevant to Health Maintenance Results * Due to [place] [employer] law, this organization might not be sharing sensitive test results. * Chlamydia and Gonorrhoea, Amplified (02/23/2015 2:08 PM EDT) URINE GC AMP PROBE NEGATIVE [facility] Comment: No Neisseria Gonorrhoeae RNA detected in this patient's sample (REFERENCE RANGE/NORMAL VALUE: NOT DETECTED) NOTE: This test uses grinding operator-mediated amplification method to detect rRNA from C.Trachomatis [...] without risk of sexual abuse. Consult the [facility] if needed. Contact phone number . Therapeutic failure or success cannot be determined with the Aptima Combo2 assay since nucleic acid may persist following appropriate antimicrobial therapy. The Centers for Disease Control and Prevention (CDC) recommends confirmatory retesting using culture or a different nucleic acid amplification test when positive results occur, if indicated. Testing performed or reported by [facility], a Service of [facility], [address] [place] [id number] Otoniel Rutledge MD, PhD, Global Recruiter URINE CHLAMYDIA AMP PROBE NEGATIVE [facility] Comment: No Chlamydia Trachomatis RNA detected in this patient's sample (REFERENCE RANGE/NORMAL VALUE: NOT DETECTED) 02/23/2015 2:08 PM EDT [facility] - 02/23/2015 2:08 PM EDT URINE CHLAMYDIA GC AMP PROBE us Monica Francis MD LAB MICROBIOLOGY - GENERAL ORDER GREG Final Result [facility] [address] [facility] [place] [address], [place] from Last 3 Months or Most Recently Relevant to Health Maintenance
--- OUTSIDE RECORDS SUMMARY | 2025-05-10 11:05 | XMS_ITS | Encounter Summary ---
Author Organization [facility] Address [address] [place] [address] Phone Care Team Providers Care Cabinet And Trim Installer Name Role Phone Monica Francis MD Primary Care Provider [phone] Encounter Details Date Type Department Care Team (Late st Contact Info) Description 09/30/2012 [place]ation [facility] [place] [address] [place] [address] Family Medicine, Physician [address] [place] [phone] Social History Tobacco Use Types Packs/Day Years [...] on filedocumented in this encounter Care Teams Cabinet And Trim Installer Relationship Specialty Start Date End Date Monica Francis MD [address] [place] [address] [place] [address] PCP - General 03/08/17 01/27/23 documented as of this encounter
--- OUTSIDE RECORDS SUMMARY | 2025-05-10 11:05 | XMS_ITS | Encounter Summary ---
Author Organization [facility] Address [address] [place] [address] Phone Care Team Providers Care Steam Setter Name Role Phone Monica Francis MD Primary Care Provider Encounter Details Date Type Department Care Team (Late st Contact Info) Description 01/25/2012 [place] [facility] [place] [address] [place] [address] Family Medicine, Physician [address] [place] [phone] Social History Tobacco Use Types Packs/Day Years [...] on filedocumented in this encounter Care Teams Steam Setter Relationship Specialty Start Date End Date Monica Francis MD [address] [place] [address] [place] [address] PCP - General 03/08/17 01/27/23 documented as of this encounter
--- OUTSIDE RECORDS SUMMARY | 2025-05-10 11:05 | XMS_ITS | Encounter Summary ---
Author Organization [facility] Address [address] [place] [address] Phone Care Team Providers Care Input Output Clerk Name Role Phone Monica Francis MD Primary Care Provider [phone] Encounter Details Date Type Department Care Team (Late st Contact Info) Description 02/15/2014 Documentation [facility] [place] Family Medicine [address] [place] [address] Family Medicine, Physician [address] [place] [phone] Social History Tobacco Use Types Packs/Day Years [...] on filedocumented in this encounter Care Teams Input Output Clerk Relationship Specialty Start Date End Date Monica Francis MD [address] [place] [address] [place] [address] PCP - General 03/08/17 01/27/23 documented as of this encounter
--- OUTSIDE RECORDS SUMMARY | 2025-05-10 11:05 | XMS_ITS | Encounter Summary ---
Author Organization [facility] Address [address] [place] [address] Phone Care Team Providers Care Physician Internist Name Role Phone Monica Francis MD Primary Care Provider [phone] Encounter Details Date Type Department Care Team (Late st Contact Info) Description 08/31/2011 Documentation [facility] [place] [address] [place] [address] Family Medicine, Physician [address] [place] [phone] Social History Tobacco Use Types Packs/Day Years [...] on filedocumented in this encounter Care Teams Physician Internist Relationship Specialty Start Date End Date Monica Francis MD [address] [place] [address] [place] [address] PCP - General 03/08/17 01/27/23 documented as of this encounter
--- OUTSIDE RECORDS SUMMARY | 2025-05-10 11:05 | XMS_ITS | Encounter Summary ---
Author Organization [facility] Address [address] [place] [address] Phone Care Team Providers Care Research And Development Researcher Name Role Phone Monica Francis MD Primary Care Provider [phone] Encounter Details Date Type Department Care Team (Late st Contact Info) Description 05/15/2010 Documentation [facility] [place] [address] [place] [address] Family Medicine, Physician [address] [phone] Social History Tobacco Use Types Packs/Day Years [...] on filedocumented in this encounter Care Teams Research And Development Researcher Relationship Specialty Start Date End Date Monica Francis MD [address] [place] [address] [place] [address] PCP - General 03/08/17 01/27/23 documented as of this encounter
--- OUTSIDE RECORDS SUMMARY | 2025-05-10 11:05 | XMS_ITS | Encounter Summary ---
Author Organization [facility] Address [address] [place] [address] Phone Care Team Providers Care Sled Maker Name Role Phone Monica Francis MD Primary Care Provider [phone] Encounter Details Date Type Department Care Team (Late st Contact Info) Description 07/31/2011 [place] [facility] [place] [address] [place] [address] Family Medicine, Physician [address] [phone] Social History Tobacco Use Types Packs/Day Years [...] on filedocumented in this encounter Care Teams Sled Maker Relationship Specialty Start Date End Date Monica Francis MD [address] [place] [address] [place] [address] PCP - General 03/08/17 01/27/23 documented as of this encounter
[2025-05-10 11:06] VITALS: BP 106/60; PULSE 106; TEMP 37.2; O2SAT 98; BMI 44.0
--- NOTE | 2025-05-10 11:06 | MHC.OFFWIV ---
Intake Vital Signs 05/10/25 11:06 Height 5 ft 1 in Weight 233 lb BMI 44.0 BP 106/60 Blood Pressure Location Rt brachial Position Sitting Pulse 106 H Pulse Source Pulse Oximeter Temp 98.9 F Pulse Oximetry (%) 98 Oxygen Delivery Method Room Air Intake Visit Reasons: EP-Ear infection? Patient Tobacco Use Status: Never used Tobacco Allergies Penicillins (PENICILLINS) Allergy (Intermediate, Verified 05/10/25 11:08) HIVES phenobarbital (PHENOBARBITAL) Allergy (Intermediate, Verified 05/10/25 11:08) HIVES Do you need a note to return to daycare/school/sports/work: No HPI HPI Comments History of Present Illness Details History - The patient is a 29-year-old female presenting with ear pain and hearing loss. - The patient reports experiencing ringing in the ear and hearing impairment, which began on Saturday night. - Symptoms worsened with sneezing and congestion, likely due to allergic rhinitis exacerbated by dust exposure from heating system use. - The patient noted bloody discharge from the ear when she was cleaning them. - The patient has been using Zyrtec and Benadryl for symptom relief, with minimal cough reported. - She denies fever, chills, VASQUEZ, sore throat, CP, SOB, abd pain, or n/v/d. - She has no smoking history or sick contacts. Physical Exam General: Cooperative, healthy appearing, comfortable and no acute distress Orientation/consciousness: Patient oriented x3 Limitations: No limitations Head: Normal to inspection Ears: Decrease hearing in the ears. No tragus or mastoid tenderness noted. Discharge and blood noted in the right canal. TM is erythematous. Erythema noted in the left ear canal and TM is normal. Nose: Normal external nose present, normal nares present, and no nasal discharge present. Face and sinus: Sinuses tender to palpation. Mouth: Normal oral and palatal mucosa present and moist mucous membranes noted. Throat: Tonsils normal. Uvula is midline. Posterior oropharynx with erythema and no exudates. Neck: Normal visual inspection, full ROM. No lymphadenopathy noted. Respiratory: Clear to auscultation bilaterally. Normal respiratory effort, able to speak in complete sentences. No respiratory distress, not tachypneic, no tripod positioning and no use of accessory muscles. Cardiovascular: Regular rate and rhythm. Normal S1 and S2. No m/r/g noted. Skin: No rashes or lesions noted Patient was informed and verbally consented to the use of an ambient scribe for clinic note documentation during this visit [facility] Medical History (Updated 12/31/24 @ 09:34 by Silvestre Batista MD) Encounter for management and injection of depo-Provera Family planning Contraceptive management Hordeolum externum left upper eyelid IUD strings lost Otitis media of right ear with 6 completed weeks gestation Sprain of right knee Hearing deficit Otitis externa Otitis media Allergy Hidradenitis suppurativa Obesity Hearing deficit Morbid obesity with BMI of 40.0-44.9, adult Surgical History History of ear surgery History of tonsillectomy and adenoidectomy Family History Father Pacemaker Stroke Asthma Hypertension Mother Hypertension Asthma Chronic mental illness Anxiety and depression Paternal Aunt Pancreatic cancer Social History Housing: House Alcohol intake: current Alcohol intake frequency: holidays/special occasions only Comment: once a month 1-2 drinks Patient Tobacco Use Status: Never used Tobacco Tobacco use type: Cigarette Years Smoked: edible e-Cigarette/Vaping Use: Never Used Second Hand Smoke Exposure: No Current occupational status: employed Current occupation: Mental health counselor Sexual orientation: Straight/Heterosexual Gender identity: Female Cognitive needs: No Hearing needs: No Vision needs: No Female Reproductive History Menstrual Age of Menarche: 9 Review of Systems Const All systems reviewed & are unremarkable except as noted in HPI and below Physical Exam Vital Signs: Last Vital Signs Temp 98.9 F 05/10/25 11:06 Pulse 106 H 05/10/25 11:06 BP 106/60 05/10/25 11:06 Pulse Ox 98 05/10/25 11:06 Oxygen Delivery Method Room Air 05/10/25 11:06 BMI result Body Mass Index 44.0 Assessment & Plan Assessment & Plan (1) Otitis media: Code(s): H66.90 - Otitis media, unspecified, unspecified ear Qualifiers: Otitis media type: suppurative Chronicity: acute Laterality: right Recurrence: non-recurrent Spontaneous tympanic membrane rupture: without spontaneous rupture Qualified Code(s): H66.001 - Acute suppurative otitis media without spontaneous rupture of ear drum, right ear Plan Most likely OM vs OE vs TM rupture plan - Initiate antibiotic therapy for ear infection. - tylenol or motrin as needed for pain or fever - Advise against inserting any objects into the ear canal. - Continue current antihistamine regimen with Zyrtec and Benadryl. - Monitor symptoms and consider further evaluation if symptoms persist. Medications: New cefpodoxime must administer with a meal/food 200 mg PO Q12H 14 tabs 0RF Coding Level of Care Code Est Pt Level 3 (78540) Diagnoses Non-recurrent acute suppurative otitis media of right ear without spontaneous rupture of tympanic membrane H66.001 Otitis media type: suppurative Chronicity: acute Laterality: right Recurrence: non-recurrent Spontaneous tympanic membrane rupture: without spontaneous rupture
== END 2025-05-10 11:55 | disposition home or self-care (01) ==
PROVIDERS: PCP Internal Medicine; Visit Provider Physician Assistant Medical
DX: H66.001 Acute suppurative otitis media without spontaneous rupture of ear drum, right ear (principal)

== ENCOUNTER → 2025-05-10 11:04 | Outpatient (BNVA) | payer OTHER, SELFPAY | PROVIDERS: PCP Internal Medicine; Visit Provider Physician Assistant Medical | DX: H66.001 Acute suppurative otitis media without spontaneous rupture of ear drum, right ear (principal) | CPT/HCPCS: 99212 ==